=== PATIENT | female | born 1990 | race Caucasian/White ===

== ENCOUNTER → 2020-10-26 16:51 | Outpatient (BNVA) | payer OTHER, SELFPAY | PROVIDERS: Family Provider Obstetrics & Gynecology; Visit Provider Nurse Practitioner Family | DX: B96.89 Other specified bacterial agents as the cause of diseases classified elsewhere (principal); J03.80 Acute tonsillitis due to other specified organisms | CPT/HCPCS: 87071; 87880 ==

== ENCOUNTER → 2022-07-25 08:50 | Outpatient (BNVA) | payer OTHER, SELFPAY | PROVIDERS: Family Provider Obstetrics & Gynecology; Visit Provider Nurse Practitioner Women's Health | DX: Z34.90 Encounter for supervision of normal pregnancy, unspecified, unspecified trimester (principal) | CPT/HCPCS: 81000; 81025 ==

== ENCOUNTER 2022-08-15 19:03 | Emergency (ER) | payer OTHER, SELFPAY ==
[2022-08-15 19:06] VITALS: BP 137/89; PULSE 105; RESP 20; TEMP 37; O2SAT 100; BMI 23.6
--- NOTE | 2022-08-15 19:06 | USR_ITS ---
PROCEDURE INFORMATION: Exam: US First Trimester, Transabdominal and US , Transvaginal Exam date and time: 08/15/2022 7:51 PM Age: 31 years old Clinical indication: Lmp or gestational age (in weeks): 11w 4 d by u/s today. Antepartum complications; Bleeding; ; Patient HX: Spotting since office visit on 07/14/2022, now heavy vag bleed x 2 hours. ; Additional info: Threatened miscarriage LABS AND CLINICAL REPORTS: Serum Choriogonadotropin (HCG): 59162 mIU/mL Last menstrual period start date: 06/02/2022 Gestational age (Established): 10 w 4 d Estimated due date (Established): 03/09/2023 TECHNIQUE: Imaging protocol: Real-time transabdominal obstetrical ultrasound of the maternal pelvis and a first trimester , less than 14 weeks 0 days, with image documentation. Transvaginal imaging was used for better evaluation of the fetus, adnexa, and/or cervix. COMPARISON: US OB limited [id number] 06/04/2018 4:38 PM FINDINGS: Gestation: Intrauterine gestation is visualized. pole is visualized. No yolk sac is visualized. Embryonic/ heart rate: 164 bpm Extra-embryonic membranes/Placenta: Subchorionic hematoma measures 3.5 cm x 0.7 cm x 0.7 cm. Amniotic fluid: Amniotic fluid and extra-amniotic fluid is normal for gestational age. BIOMETRY: Gestational age (AUA): 11 w 4 d Estimated due date (AUA): 03/02/2023 Leming-Rump length (CRL): 49 mm. EGA (CRL) is 11 w 4 d MATERNAL: Uterus: Uterus measures 11.6 cm x 8 cm x 9.8 cm. Cervix: Unremarkable. Right ovary/adnexa: Right ovary measures 3.3 cm x 2.7 cm x 1.9 cm. Right ovarian volume is 8.8 mL. Left ovary/adnexa: Left ovary measures 3.8 cm x 2.3 cm x 3.5 cm. Left ovarian volume is 15.6 mL. Intraperitoneal space: No intraperitoneal free fluid. US/US OB <= 14 weeks fetus [id number] IMPRESSION: 1. Single live intrauterine gestation with estimated age of 11 weeks 4 days. 2. Small subchorionic hematoma.
[2022-08-15 19:42] LABS: Basophils % 0.5 %; Eosinophils # 0.2 10^3/uL (0.0-0.8); Eosinophils % 2.3 %; Hematocrit 37.7 % (37.0-47.0); Hemoglobin 12.7 g/dL (11.5-15.3); Lymphocytes % 37.8 %; Mean Corpuscular HGB Conc 33.7 g/dL (30.0-36.0); Mean Corpuscular Hemoglobin 30.2 pg (28.0-34.0); Mean Corpuscular Volume 89.8 fl (81-99); Mean Platelet Volume 9.2 fL (7.4-10.4); Monocytes # 0.4 10^3/uL (0.2-0.9); Monocytes % 4.9 %; Neutrophils # 4.26 10^3/uL (1.8-7.7); Neutrophils % 54.1 %; Nucleated Red Blood Cells % 0 %; Platelet Count 246 10^3/cmm (130-400); Red Cell Distribution Width 12.3 % (12.1-15.1); White Blood Count 7.9 10^3/uL (4.0-10.0)
--- NOTE | 2022-08-15 20:29 | W.ED.PREGNAN ---
HPI - General: Chief complaint: Vaginal Bleeding Stated complaint: 7 weeks preg. Bleeding Time Seen by Provider: 08/15/22 20:28 History of Present Illness: 31-year-old female comes in today with some bleeding and passing of clots during . Patient believes that she is approximately 7 weeks . Patient appears nontoxic. Patient appears in no acute distress. Date of Last Menstrual Period: 05/30/23 Associated symptoms: Reports nausea and vomiting Review of Systems Const: Denies: fever(s) Card: Denies: chest pain Resp: Denies: dyspnea GI: Reports: nausea and vomiting; Denies: diarrhea or constipation : Reports: vaginal bleeding; Denies: difficulty voiding Musc: Denies: back pain Skin/Breast: Denies: rash PFSH ED PFSH: Family History Denies family history of Colon cancer Ovarian cancer Diabetes Heart disease Breast cancer Family history of thyroid problem Hypertension Uterine cancer Stroke Hyperchloremia Female Reproductive History: Date of last menstrual period: 05/30/23 Physical Exam Const: COMMON NORMALS: alert HENMT: COMMON NORMALS: normocephalic HEAD & SCALP: normocephalic Neck/C-Spine: COMMON NORMALS: full ROM Resp: COMMON NORMALS: normal respiratory effort Cardio: COMMON NORMALS: regular rate RATE: regular rate GI: COMMON NORMALS: Soft to palpation PALPATION: Yes Soft to palpation Extremity: COMMON NORMALS: normal to inspection and no pedal edema Neuro: SENSORIUM/ORIENTATION: Yes alert Skin: COMMON NORMALS: no rashes or lesions noted GENERAL SKIN EXAM: no rashes or lesions noted Course ED course: 2045, discussed patient with Dr. Maldonado regarding the subchorionic bleed. Patient has good heart tones in the 160s, baby measures at [address] Maldonado recommended pelvic rest and no lifting with need to return for gross bleeding or fever. Patient is scheduled to follow-up with an appointment on Monday or of this week. Recommend contacting the office to ensure there is an appointment we will ask case management to assist. Reviewed this with patient who reported understanding and agreed to plan. Vital Signs: Vital signs: Vital Signs Temperature 98.6 F 08/15/22 19:06 Pulse Rate 105 H 08/15/22 19:06 Respiratory Rate 20 H 08/15/22 19:06 Blood Pressure 137/89 08/15/22 19:06 Pulse Oximetry 100 08/15/22 19:06 Oxygen Delivery Me thod 08/15/22 19:06 MDM - OB/Uterine Contractions Medical Decision Making 31-year-old female comes in today with some abnormal bleeding during the first trimester of . Patient did report 2 large clots. On exam abdomen soft nontender. Bowel sounds are present. Skin is warm and dry. Vital signs are normal. Differential diagnosis includes but not limited to miscarriage, subchorionic bleeding, ectopic . CBC noted a hemoglobin of 12.7. Serum quantitative result was 56,000. Patient is A positive blood typing. Ultrasound noted an 11-week gestation fetus with an active heart rate of 160s. Patient did have a subchorionic hemorrhage. Reviewed this with Dr. Maldonado who recommended follow-up in the office along with no lifting and pelvic rest. Case management was requested to make sure patient have an appointment for Monday or of this week. Patient reported understanding of care plan patient was put into no active working until follow-up appointment. Lab Data 08/15/22 19:30 Radiology Impressions Ultrasound 08/15/22 19:06 IMPRESSION: 1. Single live intrauterine gestation with estimated age of 11 weeks 4 days. 2. Small subchorionic hematoma. Laboratory Results WBC 7.9 10^3/uL (4.0-10.0) 08/15/22 19:30 RBC 4.20 10^6/uL (4.1-5.3) 08/15/22 19:30 Hgb 12.7 g/dL (11.5-15.3) 08/15/22 19:30 Hct 37.7 % (37.0-47.0) 08/15/22 19:30 MCV 89.8 fl (81-99) 08/15/22 19:30 MCH 30.2 pg (28.0-34.0) 08/15/22 19: MCHC 33.7 g/dL (30.0-36.0) 08/15/22 19:30 RDW 12.3 % (12.1-15.1) 08/15/22 19:30 Plt Count 246 10^3/cmm (130-400) 08/15/22 19:30 MPV 9.2 fL (7.4-10.4) 08/15/22 19:30 Neut % (Auto) 54.1 % 08/15/22 19:30 Lymph % (Auto) 37.8 % 08/15/22 19:30 [place] % (Auto) 4.9 % 08/15/22 19:30 Eos % (Auto) 2.3 % 08/15/22 19:30 Baso % (Auto) 0.5 % 08/15/22 19:30 Neut # (Auto) 4.26 10^3/uL (1.8-7.7) 08/15/22 19:30 Lymph # (Auto) 3.0 10^3/uL (0.8-4.8) 08/15/22 19:30 [place] # (Auto) 0.4 10^3/uL (0.2-0.9) 08/15/22 19:30 Eos # (Auto) 0.2 10^3/uL (0.0-0.8) 08/15/22 19:30 Baso # (Auto) 0.0 10^3/uL (0.0-0.1) 08/15/22 19:30 Nucleated RBC % (auto) 0 % 08/15/22 19: Nucleated RBCs # 0.0 /100WBC 08/15/22 19:30 Ser , Semi-Qnt 23499.00 mIU/mL 08/15/22 19:30 Discharge Plan Discharge Patient Disposition: Home Clinical Impression: Subchorionic bleed Qualifiers: Fetus number: single or unspecified fetus Trimester: first trimester Qualified Code(s): O41.8X10 - Other specified disorders of amniotic fluid and membranes, first trimester, not applicable or unspecified Condition: Stable Prescriptions: No Action No Known Home Medications Discharge Orders: Discharge ED (Routine); Ordered 08/15/22 Ordered By: Wood Potts Patient Instructions: Opioid Safety, Pain Management Activity Restrictions/Additional Instructions: Home and rest. Drink plenty of fluids. Minimal to light activity until bleeding stops. You should maintain pelvic rest and no lifting. Follow-up at scheduled appointment. Return to ER for worsening symptoms such as bleeding greater than 1 pad in 30 minutes, severe pain, or high fever greater than 100.4. regional e[facility] manager will contact you to assist with follow-up with Dr. Maldonado on Monday or . Stand Alone Forms: Work/School Release Coding Level of Care Code ED Inventory Control Clerk for Christelle Vasquez
[2022-08-15 21:02] VITALS: BP 131/75; PULSE 76; RESP 16; O2SAT 98
--- NOTE | 2022-08-16 10:45 | DCPLANNER ---
Addendum entered by Ani Lovell 09/13/22 08:00: Patient had a follow up appointment scheduled with [facility] - patient did attend appointment Addendum entered by Ani Lovell 08/17/22 12:44: Patient has a follow up appointment scheduled for , August 18, 2022 at 8:[address] Maldonado at [facility]. Clinic will call patient with appointment information. Original Note: spa manager had message to schedule a follow up appointment for patient with [facility]. spa manager sent patients information to the front office staff at [facility]. Patients information will be printed and reviewed. Clinic will call patient with appointment information.
== END 2022-08-15 21:02 | disposition home or self-care (01) ==
PROVIDERS: Emergency Medicine; Emergency Provider Nurse Practitioner Family
DX: O41.8X10 Other specified disorders of amniotic fluid and membranes, first trimester, not applicable or unspecified (principal); Z3A.01 Less than 8 weeks gestation of pregnancy
CPT/HCPCS: 36415; 76801; 84702; 85025; 86850; 86900; 99284

== ENCOUNTER → 2022-08-18 08:12 | Outpatient (BNVA) | payer OTHER, SELFPAY | PROVIDERS: Visit Provider Obstetrics & Gynecology | DX: Z34.90 Encounter for supervision of normal pregnancy, unspecified, unspecified trimester (principal) | CPT/HCPCS: 80307; 84315; 84443; 86592; 86762; 86803; 87086; 87340; 87806 ==

== ENCOUNTER → 2022-09-08 11:04 | Outpatient (BNVA) | payer OTHER, SELFPAY | PROVIDERS: Visit Provider Obstetrics & Gynecology | DX: O46.92 Antepartum hemorrhage, unspecified, second trimester (principal); Z3A.15 15 weeks gestation of pregnancy | CPT/HCPCS: 76815 ==

== ENCOUNTER 2022-09-14 23:13 | Emergency (ER) | payer OTHER, SELFPAY ==
[2022-09-14 23:30] VITALS: BP 145/92; PULSE 126; RESP 14; TEMP 36.9; O2SAT 99
--- NOTE | 2022-09-14 23:35 | W.ED.PREGNAN ---
HPI - General: Chief complaint: Vaginal Bleeding Stated complaint: 15 wks , vaginal discharge Time Seen by Provider: 09/14/22 23:18 Source: patient Mode of arrival: ambulatory Limitations: no limitations History of Present Illness: 31-year-old female who is currently 15 weeks states that tonight she had had some bloody discharge in her sheets she had noticed just prior to arrival states she has had bleeding throughout this she states she was seen earlier this week at [place] through the ER had an ultrasound that was normal along with palp exam that was normal she sees her OB on Monday she has had some slight abdominal cramping denies any severe pain denies any fever Associated symptoms: Deny abdominal pain, headache(s), nausea or vomiting Review of Systems Const: Denies: fever(s), chills, body aches or change in appetite Eyes: Denies: blurry vision or eye discomfort ENMT: Denies: throat pain or dental pain Card: Denies: chest pain Resp: Denies: dyspnea GI: Denies: abdominal pain, nausea, vomiting or diarrhea : Reports: vaginal bleeding Musc: Denies: neck pain or back pain Skin/Breast: Denies: rash Neuro: Denies: headache(s) Psych: Denies: depression Jack/Lymph: Denies: easy bruising All/Imm: Denies: urticaria PFSH ED PFSH: Medical History No pertinent past medical history Surgical History History of ankle surgery (~10/2008) sports injury Family History Denies family history of Colon cancer Ovarian cancer Diabetes Heart disease Breast cancer Family history of thyroid problem Hypertension Uterine cancer Stroke Hyperchloremia Physical Exam Const: COMMON NORMALS: no acute distress and patient oriented x3 HENMT: COMMON NORMALS: normocephalic and atraumatic HEAD & SCALP: normocephalic and atraumatic Eye: COMMON NORMALS: conjunctivae normal CONJUNCTIVA: Yes conjunctivae normal Neck/C-Spine: COMMON NORMALS: full ROM Chest: COMMONS NORMALS: normal inspection of the chest Resp: COMMON NORMALS: normal respiratory effort Cardio: COMMON NORMALS: regular rate RATE: regular rate GI: COMMON NORMALS: Normal to inspection, nondistended, normoactive bowel sounds present, Soft to palpation and non-tender PALPATION: Yes Soft to palpation Extremity: COMMON NORMALS: normal to inspection Neuro: COMMON NORMALS: patient oriented x3 Psych: COMMON NORMALS: mental status grossly normal Skin: COMMON NORMALS: no rashes or lesions noted GENERAL SKIN EXAM: no rashes or lesions noted Course Vital Signs: Vital signs: Vital Signs Temperature 98.5 F 09/14/22 23:30 Pulse Rate 126 H 09/14/22 23:30 Respiratory Rate 14 09/14/22 23:30 Blood Pressure 145/92 09/14/22 23:30 Pulse Oximetry 99 09/14/22 23:30 Oxygen Delivery Me thod 09/14/22 23:30 MDM - OB/Uterine Contractions Medical Decision Making Patient presents here with vaginal bleeding from home ultrasound showed IUP consistent with dates with heart rate of 152 she states she had a pelvic exam 2 days ago and refused a pelvic exam here she did not want any further testing she has an appoint with her OB on Monday she is to follow-up then she is return if worsening she understands agrees to plan. Discharge Plan Discharge Patient Disposition: Home Clinical Impression: Vaginal bleeding, Threatened miscarriage Condition: Stable Prescriptions: No Action No Known Home Medications Discharge Orders: Discharge ED (Routine); Ordered 09/14/22 Ordered By: Jean Pierre Kate Referrals: Jeanne Maldonado MD [Primary Care Provider] - 1-3 days Discharge Diet: Advance as tolerated Discharge Activity: Resume usual activity Patient Instructions: Threatened Miscarriage (ED) Coding Level of Care Code ED Relationship Advisor for Christelle Vasquez
[2022-09-15 00:12] VITALS: PULSE 99; RESP 16
== END 2022-09-14 23:55 | disposition home or self-care (01) ==
PROVIDERS: Emergency Provider Emergency Medicine; PCP Obstetrics & Gynecology
DX: O20.0 Threatened abortion (principal); Z3A.15 15 weeks gestation of pregnancy
CPT/HCPCS: 99282

== ENCOUNTER 2022-09-19 09:05 | Outpatient (CLI) | payer OTHER, SELFPAY ==
--- NOTE | 2022-09-19 09:30 | US_ITS ---
WS: [id number] OB ultrasound, 09/19/2022 Clinical Data: O20.9 - Hemorrhage in early , unspecified Comparison: OB ultrasound, 09/08/2022 Findings: The patient has had a spontaneous , miscarriage. There is no evidence of any material r emaining. The uterus is slightly enlarged. No abnormal adnexal masses are seen. US/US OB limited [id number] Impression: Miscarriage, no evidence of retention of material.
== END 2022-09-19 09:06 | disposition home or self-care (01) ==
LOC: RAD 09:09
PROVIDERS: Visit Provider Obstetrics & Gynecology
DX: O03.9 Complete or unspecified spontaneous abortion without complication (principal); Z3A.00 Weeks of gestation of pregnancy not specified
CPT/HCPCS: 76815; 81000

== ENCOUNTER 2022-09-20 14:58 | Day surgery (SDC) | payer OTHER, SELFPAY ==
[2022-09-20] VITALS (15 sets, daily range): BP systolic 102–142; BP diastolic 61–85; PULSE 84–122; RESP 14–22; TEMP 36.2–37.3; O2SAT 96–99
--- NOTE | 2022-09-20 16:22 | ANES.PREANE2 ---
Pre-Anesthetic Assessment Height/Weight: Height 1.7 m Weight 65.771 kg Temp Pulse Resp BP Pulse Ox O2 Del Method 99.2 F 88 18 142/84 98 09/20/22 16:21 09/20/22 16:21 09/20/22 16:21 09/20/22 16:21 09/20/22 16:21 09/20/22 16:21 Operation Date: 09/20/22 16:00 Proposed Procedures p Hysteroscopy w/ Myosure(Not Applicable) - Jeanne Maldonado MD s Dilation And Curettage (D&C)(Not Applicable) - Jeanne Maldonado MD Familial anesthetic complications: None Was Beta Raymond taken within 24 hours: N/A Was Clonidine taken within 24 hours: N/A Last intake: 13:00 Social No alcohol and No tobacco Exam alert, oriented x 3, clear to auscultation bilaterally and regular rate & rhythm Airway Mallampati: Class I Dentition: full Anesthetic Plan ASA status: 2 Anesthesia: General Risk of > 500 ml blood loss (7ml/kg in children): No Medications/Allergies Home Medications Medication Instructions Recorded Confirmed Last Taken Type ibuprofen 600 mg tablet 600 mg PO Q6H PRN pain #30 tabs 09/19/22 09/19/22 Unknown Rx misoprostol 200 mcg tablet 600 mcg PO Q6H #12 tabs 09/19/22 09/19/22 Unknown Rx (Cytotec) promethazine 25 mg tablet 25 mg PO Q6H PRN nausea and 09/19/22 09/19/22 Unknown Rx vomiting #30 tabs Allergies Allergy/AdvReac Type Severity Reaction Status Date / Time acetaminophen [From Tylenol] Allergy ALGY-Rash Verified 09/19/22 09:52 [facility] Anesthesia Medical History No pertinent past medical history Surgical History History of ankle surgery (~10/2008) sports injury Family History Denies family history of Colon cancer Ovarian cancer Diabetes Heart disease Breast cancer Family history of thyroid problem Hypertension Uterine cancer Stroke Hyperchloremia Data Anesthesia Cardiac Studies: No Data to Display
--- NOTE | 2022-09-20 16:29 | W.PM.OPSUD ---
Surgery/Procedure H&P Update DATE OF PROCEDURE: September 20, 2022 DATE H&P PERFORMED: 09/19/22 H&P UPDATE INFORMATION: I have reviewed H&P completed within last 30 days, I have examined patient prior to procedure and No changes to prior documentation CHANGES TO PREVIOUS DOCUMENTATION: The patient has suffered a miscarriage. She has retained placenta. She continues to bleed. PLANNED PROCEDURE: Operation Date: 09/20/22 16:00 Proposed Procedures p Hysteroscopy w/ Myosure(Not Applicable) - Jeanne Maldonado MD s Dilation And Curettage (D&C)(Not Applicable) - Jeanne Maldonado MD Related Problem List Diagnoses (1) Incomplete : (2) Endocervical polyp:
[2022-09-20] MEDS: sodium chloride 0.9% 1,000 ML 30 ML IV (16:50)
[2022-09-20] MEDS: scopolamine 1.5 Patch 1 PATCH TRANSDERMA (16:51)
[2022-09-20] MEDS: ceFAZolin 2,000 MG in sodium chloride 0.9% (plus) 50 ML 100 MG IV (21:02)
[2022-09-20] MEDS: miSOPROStol 200 mcg Tablet 800 MCG PR (21:52)
[2022-09-20] MEDS: tranexamic acid 1,000 mg/10mL SDV 1000 MG IV (21:52)
[2022-09-20] MEDS: oxytocin 10 unit/mL SDV 1 mL 20 UNIT IM (21:53)
[2022-09-20] MEDS: meperidine 50 mg/mL INJ 12.5 MG IVP (22:22)
--- NOTE | 2022-09-20 22:25 | P.OP_ITS ---
Operative Report Date of procedure: September 20, 2022 Pre-op diagnosis: Preop Diagnosis incomplete Post-op diagnosis: same Post-op findings: Retained placenta with a long endometrial polyp Procedure done: hysteroscopy, D&C and suction D&C. Specimens removed/disposition: products of conception. Endometrial polyp to pathology Surgeon: Jeanne Maldonado Anesthesia: General Estimated blood loss (mL): 200 IV fluids (mL): 1,100 Complications: none Findings: hysteroscopy deficit 520 ml Condition: stable Disposition: PACU Procedure: The patient was taken to the operating room where monitored anesthesia was administered and to be adequate. She was prepped and draped in the normal sterile fashion in the dorsal lithotomy position in [facility]. A weighted speculum was placed into the vagina and the anterior lip of the cervix grasped with a single-tooth tenaculum. The uterus was sounded to 14 cm. The cervix was already dilated and the hysteroscope was advanced into the endometrial cavity. There was a lot of blood visualized. The fluid was also escaping through the cervix so a second tenaculum was placed to attempt to slow the fluid release. I was able to see briefly. The MyoSure device was activated and some tissue was removed. The patient began bleeding at this point and I switched to suction D&C A 9 mm suction catheter was introduced into the uterine cavity. The suction was activated and products of conception were removed. I made several passes passes with the suction catheter. The patient continued to bleed. 800 of Cytotec was placed rectally. Pitocin was started IV. 1 g of TXA was given IV. There was also vigorous bimanual exam to clamp the uterus down. The bleeding slowed significantly. 1 pass with the sharp curette was performed and the texture was gritty. There was a scant amount of bleeding at this point. Attention was then turned back to the MyoSure. The myosure device was advanced into the endometrial cavity. Pictures were now able to be taken. There was a long polyp in the left tubal ostia region. Using the MyoSure device, I removed this polyp. All instruments were removed. Bleeding was scant. The patient tolerated the procedure well. Sponge lap and needle counts were correct x3. She was taken to the recovery room in stable condition.
--- NOTE | 2022-09-20 22:33 | PM.PACU ---
PACU note Exam: awake and vital signs stable Disposition: discharged
--- NOTE | 2022-09-20 22:39 | PM.DCS ---
Discharge Providers Date of Admission: 09/20/22 Date of Discharge: September 20, 2022 Attending Provider at Discharge: Jeanne Maldonado MD Diagnoses at Discharge Discharge Diagnosis (1) Incomplete : Status: Acute (2) Endocervical polyp: Status: Acute Reason for Visit Reason for Visit: miscarried yesterday/D&C Hospital Course Hospital Course The patient was admitted for surgery for incomplete . She did well postoperatively and was ready for discharge. Discharge Data Studies Completed and Pending Pending at discharge Category Date Time Status Pathology: Surgical [PTH] Routine Pth 09/20/22 21:43 Ordered Vitals Last Vital Signs Temp 97.2 F L 09/20/22 22:17 Pulse 105 H 09/20/22 22:30 Resp 20 H 09/20/22 22:30 BP 121/63 09/20/22 22:30 Pulse Ox 97 09/20/22 22:30 O2 Del Method 09/20/22 22:30 Discharge Plan Discharge Patient Disposition: Home Condition: Stable Prescriptions: Continued misoprostol [Cytotec] 200 mcg tablet 600 mcg PO Q6H Qty: 12 0RF ibuprofen 600 mg tablet 600 mg PO Q6H PRN (Reason: pain) Qty: 30 0RF promethazine 25 mg tablet 25 mg PO Q6H PRN (Reason: nausea and vomiting) Qty: 30 0RF Discharge Orders: Discharge Order (Routine); Ordered 09/20/22 Ordered By: Jeanne Maldonado Referrals: Jeanne Maldonado MD [Physician] - (Please call clinic tomorrow morning to schedule follow-up appointment. ) Patient Instructions: Dilatation and Curettage, Ibuprofen (By mouth) Discharge Attestations Time Spent in Discharge Care*: less than 30 min Quality Metrics Clinical Quality Measures [ No reported AMI, CVA or VTE this stay] Coding Level of Care Code Acute Code for Chg Fwd Diagnoses Incomplete O03.4 Endocervical polyp N84.1
--- NOTE | 2022-09-20 23:00 | ANE.PACU2 ---
Inpatient post-anesthesia follow up: Airway intact: Yes Vital signs: Temperature 98.7 F Pulse Rate 90 Respiratory Rate 14 Blood Pressure 126/75 Pulse Oximetry 97 Oxygen Delivery Me thod Room Air Oxygen Flow Rate Fraction of Inspir ed Oxygen Hydration adequate: Yes Nausea and vomiting: No Pain level: 1 Mental status: Baseline
== END 2022-09-20 23:45 | disposition home or self-care (01) ==
LOC: ER 15:09 → OBGYN 16:08 → ER 16:33 → OR 16:38 → ER 09-26 02:10 → OPS 09-26 02:11
PROVIDERS: Emergency Provider Obstetrics & Gynecology; Visit Provider Obstetrics & Gynecology
PROC: 0UDB8ZZ Extraction of Endometrium, Via Natural or Artificial Opening Endoscopic (ICD-10-PCS; CPT 58558; principal; 2022-09-20 16:00)
PROC: (CPT 58120; 2022-09-20 16:00)
DX: O03.4 Incomplete spontaneous abortion without complication (principal); N84.1 Polyp of cervix uteri
CPT/HCPCS: 58558; 88305; J0690; J1100; J1885; J2175; J2250; J2405; J2704; J2710; J3010; J3490; J7030

== ENCOUNTER 2022-09-25 22:27 | Observation (INO) | payer OTHER, SELFPAY ==
[2022-09-25 22:53] VITALS: BP 125/85; PULSE 138; RESP 18; TEMP 38.1; O2SAT 98
--- NOTE | 2022-09-25 23:30 | CTR_ITS ---
PROCEDURE INFORMATION: Exam: CT Abdomen And Pelvis With Contrast Exam date and time: 09/26/2022 12:16 AM Age: 31 years old Clinical indication: Fever; Abdominal pain; Localized; Lower; Prior surgery; Surgery date: Post-operative (0-2 days); Surgery type: D&c; Additional info: Fever back pain post d and c TECHNIQUE: Imaging protocol: Computed tomography of the abdomen and pelvis with contrast. Radiation optimization: All CT scans at this facility use at least one of these dose optimization techniques: automated exposure control; mA and/or kV adjustment per patient size (includes targeted exams where dose is matched to clinical indication); or iterative reconstruction. Contrast material: OMNI 350; Contrast volume: 100 ml; Contrast route: INTRAVENOUS (IV); REPORTING DATA: Count of CT and Cardiac NM exams in prior 12 months: This patient has received 0 known CTs and 0 known cardiac nuclear medicine studies in the 12 months prior to the current study. COMPARISON: US pelvic limited [id number] 09/25/2022 11:42 PM RADIATION DOSE METRICS: Total DLP (mGy-cm): 466.69 FINDINGS: Lungs: The visualized lung bases are clear. Liver: Unremarkable. No enhancing mass. Gallbladder and bile ducts: No calcified gallstones or biliary dilation identified. Pancreas: Unremarkable with no suspicious mass. No ductal dilation. Spleen: The spleen is not enlarged. No suspicious enhancing mass is noted. Adrenal glands: Normal. No mass. Kidneys and ureters: No solid renal mass or overt hydronephrosis. There is slight udtac-ingxpov-dkua-left pelvicaliectasis, which may be due to recent delivery. Stomach and bowel: Colon is quite fecal filled. Appendix: No evidence of appendicitis. Intraperitoneal space: Unremarkable. No free air. No suspicious fluid collection. Vasculature: Multiple pelvic phleboliths. No AAA. Lymph nodes: No enlarged lymph nodes. Urinary bladder: Unremarkable as visualized. Reproductive: The uterus is large and heterogenous. See the same-day ultrasound pelvis. Bones/joints: No acute fracture. Soft tissues: No acute or suspicious finding noted. CT/CT abdomen pelvis w con* [id number] IMPRESSION: 1. No small bowel obstruction, abscess or free air. 2. Large and heterogenous uterus, see the same-day ultrasound report for more details. 3. Fecal filled colon.
--- NOTE | 2022-09-25 23:30 | USR_ITS ---
PROCEDURE INFORMATION: Exam: US Pelvis Complete, Transabdominal and US Duplex Artery or Vein, Ovaries, Limited Exam date and time: 09/25/2022 11:42 PM Age: 31 years old Clinical indication: Other: Fever post dnc; Prior surgery; Surgery date: Post-operative (0-2 days); Additional info: Fever back pain post d and c TECHNIQUE: Imaging protocol: Real-time transabdominal pelvic ultrasound with image documentation. Real-time duplex ultrasound scan of the arterial or venous flow of the ovaries with B-mode, color Doppler flow and spectral waveform analysis. Complete Pelvis, Limited Duplex. Duplex exam was performed to evaluate for torsion and other vascular conditions. COMPARISON: US OB limited [id number] 09/19/2022 9:21 AM FINDINGS: Uterus: Uterus is 9 x 6 x 7 cm. There is mildly complex thickened endometrium to 1.2 cm. At the lower uterine segment, there is a small area of increased echogenicity measuring up to about 8 mm. It is not vascular, see series 1, image 14. No suspicious uterine myometrial mass. Right ovary/adnexa: Normal ovary. No mass. Normal arterial and venous flow on color and Duplex waveforms. Left ovary/adnexa: Normal ovary. No mass. Normal arterial and venous flow on color and Duplex waveforms. Intraperitoneal space: No free fluid. Urinary bladder: Normal. US/US pelvic complete* [id number] IMPRESSION: 1. Uterine endometrium mild thickening and heterogenous with a few internal echogenic areas that may be due to postop D&C changes such as blood products. Recommend 4-6 week follow-up. 2. No focal torsion or other acute finding. 3. CT pending.
--- NOTE | 2022-09-25 23:30 | XRR_ITS ---
PROCEDURE INFORMATION: Exam: XR Chest Exam date and time: 09/26/2022 12:12 AM Age: 31 years old Clinical indication: Fever; Additional info: Fever post op TECHNIQUE: Imaging protocol: Radiologic exam of the chest. Views: 1 view. COMPARISON: No relevant prior studies available. FINDINGS: Lungs: Unremarkable. No consolidation. Pleural spaces: Unremarkable. No pleural effusion. No pneumothorax. Heart/Mediastinum: Unremarkable. No cardiomegaly. Bones/joints: Unremarkable. XR/XR chest 1V portable [id number] IMPRESSION: No acute findings.
[2022-09-25 23:46] LABS: Basophils % 0.2 %; Eosinophils # 0.1 10^3/uL (0.0-0.8); Hematocrit 25.7 % (37.0-47.0); Hemoglobin 8.6 g/dL (11.5-15.3); Lymphocytes # 0.9 10^3/uL (0.8-4.8); Lymphocytes % 10.4 %; Mean Corpuscular HGB Conc 33.5 g/dL (30.0-36.0); Mean Corpuscular Hemoglobin 30.1 pg (28.0-34.0); Mean Corpuscular Volume 89.9 fl (81-99); Mean Platelet Volume 9.2 fL (7.4-10.4); Monocytes # 0.5 10^3/uL (0.2-0.9); Monocytes % 5.3 %; Neutrophils # 7.23 10^3/uL (1.8-7.7); Neutrophils % 81.1 %; Nucleated Red Blood Cells % 0.2 %; Platelet Count 308 10^3/cmm (130-400); Red Blood Count 2.86 10^6/uL (4.1-5.3); Red Cell Distribution Width 12.6 % (12.1-15.1); White Blood Count 8.9 10^3/uL (4.0-10.0)
[2022-09-26 00:06] LABS: Alanine Aminotransferase 37 U/L (0-33); Albumin Level 3.8 g/dL (3.5-5.2); Alkaline Phosphatase 75 U/L (35-105); Anion Gap 17.7 (5-19); Aspartate Amino Transferase 48 U/L (0-32); Blood Urea Nitrogen 9 mg/dL (6-20); C Reactive Protein 14.3 mg/L (0.0-4.9); Calcium 8.6 mg/dL (8.5-10.5); Carbon Dioxide 22 mmol/L (22-29); Chloride 100 mmol/L (98-107); Globulin 3.3 g/dL (1.3-4.6); Glomerular Filtration Rate 144.9 mL/min (90-130); Glucose 117 mg/dL (65-115); Lactate (Lactic Acid level) 1.2 mmol/L (0.5-2.2); Osmolality Calculated 282 mOsm/kg (285-295); Potassium 3.7 mmol/L (3.5-5.1); Sodium 136 mmol/L (136-145); Total Bilirubin 0.2 mg/dL (0.15-1.2); Total Protein 7.1 g/dL (6.6-8.7)
[2022-09-26] MEDS: iohexol 350 mg/mL 500 mL Btl (per mL) IV (00:07)
[2022-09-26 00:12] LABS: Procalcitonin 0.07 ng/mL (0-0.5)
[2022-09-26 00:16] LABS: Add Urine Microscopic? YES; Bilirubin Urine Neg (Negative); Blood Urine 2+ (Negative); Glucose Urine UA Norm (Normal); Ketones Urine Negative (Negative); Leukocyte Esterase Urine Trace (Negative); Nitrate Urine Negative (Negative); Protein Urine Neg (Negative); Specific Gravity, Urine 1.005 (1.005-1.030); Urine Appearance Clear (CLEAR); Urine Color Colorless (Yellow); Urobilinogen Urine Neg (Negative); pH Urine 7 (5-7)
[2022-09-26 00:17] LABS: Add Urine Culture? No; Bacteria Urine TRACE /hpf; Mucus Urine TRACE /hpf; RBC Urine 0-4 /hpf (0-2); Squamous Epithelial Cell Urine 0-4 /hpf (0-5); WBC Urine 0-4 /hpf (0-5)
[2022-09-26] MEDS: ibuprofen 200 mg Tablet 400 MG PO (00:31)
[2022-09-26] MEDS: ondansetron 2 mg/ML SDV 2 mL 4 MG IVP (00:33)
[2022-09-26] MEDS: sodium chloride 0.9% 1,000 ML 999 ML IV ×2 (00:33→01:18)
[2022-09-26] MEDS: piperacillin-tazobactam 4.5 GM in sodium chloride 0.9% (plus) 50 ML IV (00:36)
[2022-09-26] MEDS: vancomycin 1,000 MG in sodium chloride 0.9% 250 ML 250 MG IV (01:12)
[2022-09-26] MEDS: diphenhydrAMINE 50 mg/mL SDV 1mL 25 MG IVP (02:34)
--- NOTE | 2022-09-26 03:11 | ED_ITS ---
HPI - General Adult General: Chief complaint: General Medical Stated complaint: back pain, left cramping, fever/nausea post d&c Time Seen by Provider: 09/25/22 23:12 Source: patient and family History of Present Illness: This is a 31-year-old female postop from a D&C for 17-week miscarriage on 09/21. She presents with fever up to 101, back pain, pelvic pain, and continued vaginal bleeding. She also has a headache. She has not felt well for the last 24 hours or so. She has continued to have vaginal bleeding since her procedure, and was bleeding obviously prior to her procedure Onset (ago): hour(s) Location: back and pelvis Radiation: non-radiation Severity: moderate Quality: aching Associated symptoms: Reports fevers/chills and headache(s); Deny chest pain, confusion, cough, dyspnea, short of breath, syncope or vomiting Review of Systems Const: Reports: fever(s), chills and body aches ENMT: Denies: throat pain Card: Denies: chest pain or syncope Resp: Denies: dyspnea GI: Reports: GI cramping; Denies: vomiting : Reports: vaginal bleeding; Denies: flank pain or difficulty voiding Musc: Reports: back pain Neuro: Reports: headache(s); Denies: confusion PFSH ED PFSH: Medical History No pertinent past medical history Surgical History History of ankle surgery (~10/2008) sports injury Family History Denies family history of Colon cancer Ovarian cancer Diabetes Heart disease Breast cancer Family history of thyroid problem Hypertension Uterine cancer Stroke Hyperchloremia Physical Exam Const: GENERAL APPEARANCE: cooperative and ill appearing NUTRITIONAL APPEARANCE: thin HENMT: COMMON NORMALS: normocephalic, atraumatic and Normal external nose present HEAD & SCALP: normocephalic and atraumatic FACE & SINUS: normal facial exam and face symmetric NOSE: Normal external nose present Eye: COMMON NORMALS: Equal, round and reactive pupils present and EOMs intact bilaterally PUPIL: Yes Equal, round and reactive pupils present Neck/C-Spine: GENERAL: Yes trachea midline Chest: CHEST: Yes Symmetrical chest wall rise Resp: COMMON NORMALS: normal respiratory effort, No retractions, No use of accessory muscles and clear to auscultation bilaterally AUSCULTATION: clear t o auscultation bilaterally Cardio: COMMON NORMALS: regular rate and regular rhythm RATE: regular rate RHYTHM: regular rhythm GI: COMMON NORMALS: Normal to inspection, nondistended, normoactive bowel sounds present PALPATION: Yes Tenderness to palpation present (GI) : EXTERNAL FEMALE EXAM: Yes normal appearance of the urethra SPECULUM EXAM - CERVIX: Yes Cervical os open (slightly) and Yes Cervical bleeding (significant) OB/EXTERNAL & SPECULUM: Cervical os open (slightly) Extremity: COMMON NORMALS: no pedal edema Neuro: MALCOM COMA SCALE: document GCS findings [place] coma scale eye open ing: Spontaneous [place] coma scale verbal response: Orientated [place] coma scale motor response: Obey commands [place] coma scale total score: 15 SENSORY EXAM: Yes extremities (intact) Psych: COMMON NORMALS: speech normal SPEECH: Yes normal speech Skin: COMMON NORMALS: no rashes or lesions noted GENERAL SKIN EXAM: no rashes or lesions noted Course Consultations: Consultation #1: Angelo Vital Signs: Vital signs: Vital Signs Temperature 100.6 F H 09/25/22 22:53 Pulse Rate 138 H 09/25/22 22:53 Respiratory Rate 18 09/25/22 22:53 Blood Pressure 125/85 09/25/22 22:53 Pulse Oximetry 98 09/25/22 22:53 Oxygen Delivery Me thod 09/25/22 22:53 MDM - General Adult Medical Decision Making Patient is tachycardic, mildly hypotensive. Hemoglobin is 8.6. She continues to have significant vaginal bleeding that is somewhat brisk. She does have a fever. Chest x-ray is nonacute. CT shows a large and heterogenous uterus. Uterine endometrium on ultrasound shows mild thickening and heterogeneity. With the briskness of the bleeding, tachycardia, mild hypotension, and anemia, felt best to observe. She is covered with antibiotics in the ER. We will continue these. Repeat hemoglobins. Spoke with gynecology, they have accepted for observation. Lab Data 09/25/22 23:25 09/25/22 23:25 Radiology Impressions Abdomen/Pelvis CT 09/25/22 23:30 IMPRESSION: 1. No small bowel obstruction, abscess or free air. 2. Large and heterogenous uterus, see the same-day ultrasound report for more details. 3. Fecal filled colon. Chest X-Ray 09/25/22 23:30 IMPRESSION: No acute findings. Pelvis Ultrasound 09/25/22 23:30 IMPRESSION: 1. Uterine endometrium mild thickening and heterogenous with a few internal echogenic areas that may be due to postop D&C changes such as blood products. Recommend 4-6 week follow-up. 2. No focal torsion or other acute finding. 3. CT pending. Laboratory Results WBC 8.9 10^3/uL (4.0-10.0) 09/25/22 23: RBC 2.86 10^6/uL (4.1-5.3) L 09/25/22 23: Hgb 8.6 g/dL (11.5-15.3) L 09/25/22 23: Hct 25.7 % (37.0-47.0) L 09/25/22: MCV 89.9 fl (81-99) 09/25/22 23: MCH 30.1 pg (28.0-34.0) 09/25/22 23: MCHC 33.5 g/dL (30.0-36.0) 09/25/22 23: RDW 12.6 % (12.1-15.1) 09/25/22 23: Plt Count 308 10^3/cmm (130-400) 09/25/22 23:25 MPV 9.2 fL (7.4-10.4) 09/25/22 23: Neut % (Auto) 81.1 % 09/25/22 23: Lymph % (Auto) 10.4 % 09/25/22 23:25 Schley % (Auto) 5.3 % 09/25/22 23: Eos % (Auto) 1.0 % 09/25/22 23: Baso % (Auto) 0.2 % 09/25/22 23: Neut # (Auto) 7.23 10^3/uL (1.8-7.7) 09/25/22 23: Lymph # (Auto) 0.9 10^3/uL (0.8-4.8) 09/25/22 23: [place] # (Auto) 0.5 10^3/uL (0.2-0.9) 09/25/22 23:25 Eos # (Auto) 0.1 10^3/uL (0.0-0.8) 09/25/22 23:25 Baso # (Auto) 0.0 10^3/uL (0.0-0.1) 09/25/22 23:25 Nucleated RBC % (auto) 0.2 % 09/25/22 23:25 Nucleated RBCs # 0.0 /100WBC 09/25/22 23:25 Sodium 136 mmol/L (136-145) 09/25/22 23:25 Potassium 3.7 mmol/L (3.5-5.1) 09/25/22 23:25 Chloride 100 mmol/L (98-107) 09/25/22 23:25 Carbon Dioxide 22 mmol/L (22-29) 09/25/22 23:25 Anion Gap 17.7 (5-19) 09/25/22 23:25 BUN 9 mg/dL (6-20) 09/25/22 23:25 Creatinine 0.5 mg/dL (0.5-0.9) 09/25/22 23:25 GFR Calculation 144.9 mL/min (90-130) H 09/25/22 23:25 Glucose 117 mg/dL (65-115) H 09/25/22 23:25 Calculated Osmolality 282 mOsm/kg (285-295) L 09/25/22 23:25 Lactate 1.2 mmol/L (0.5-2.2) 09/25/22 23:25 Calcium 8.6 mg/dL (8.5-10.5) 09/25/22 23:25 Total Bilirubin 0.2 mg/dL (0.15-1.2) 09/25/22 23:25 AST 48 U/L (0-32) H 09/25/22 23:25 ALT 37 U/L (0-33) H 09/25/22 23:25 Alkaline Phosphatase 75 U/L (35-105) 09/25/22 23:25 C-Reactive Protein 14.3 mg/L (0.0-4.9) H 09/25/22 23:25 Total Protein 7.1 g/dL (6.6-8.7) 09/25/22 23:25 Albumin 3.8 g/dL (3.5-5.2) 09/25/22 23: Globulin 3.3 g/dL (1.3-4.6) 09/25/22 23: Procalcitonin 0.07 ng/mL (0-0.5) 09/25/22 23:25 Urine Color Colorless (Yellow) 09/25/22 23: Urine Appearance Clear (CLEAR) 09/25/22: Urine pH 7 (5-7) 09/25/22 23: Ur Specific [place] 1.005 (1.005-1.030) 09/25/22 23: Urine Protein Neg (Negative) 09/25/22 23: Urine Glucose (UA) Norm (Normal) 09/25/22: Urine Ketones Negative (Negative) 09/25/22 23: Urine Blood 2+ (Negative) H 09/25/22 23: Urine Nitrate Negative (Negative) 09/25/22: Urine Bilirubin Neg (Negative) 09/25/22 23: Urine Urobilinogen Neg mg/dL (Negative) 09/25/22 23:33 Ur Leukocyte Esterase Trace (Negative) H 09/25/22 23:33 Urine RBC 0-4 /hpf (0-2) H 09/25/22 23:33 Urine WBC 0-4 /hpf (0-5) H 09/25/22 23:33 Ur Squamous Epith Cells 0-4 /hpf (0-5) H 09/25/22 23: Amorphous Sediment Not Reportable 09/25/22 23: Urine Bacteria Trace /hpf (NONE) 09/25/22 23: Urine Mucus Trace /hpf 09/25/22 23:33 Blood Type A Positive 09/25/22 23:25 Rho(D) Type Positive 09/25/22 23:25 Antibody Screen Negative 09/25/22 23:25 Discharge Plan Discharge Patient Disposition: Placed in Observation Clinical Impression: Abnormal vaginal bleeding, Anemia due to acute blood loss, Fever postop Coding Level of Care Code ED Stem Roller for Christelle Vasquez
[2022-09-26 03:39] VITALS: BP 97/65; PULSE 76; RESP 18; O2SAT 96
[2022-09-26 04:00] VITALS: BP 105/65; PULSE 82; RESP 20; TEMP 36.7; O2SAT 97
[2022-09-26] MEDS: sodium chloride 0.9% 1,000 ML 125 ML IV (04:31)
[2022-09-26 04:56] LABS: Basophils % 0.2 %; Eosinophils # 0.1 10^3/uL (0.0-0.8); Eosinophils % 0.8 %; Hemoglobin 7.2 g/dL (11.5-15.3); Lymphocytes # 0.9 10^3/uL (0.8-4.8); Lymphocytes % 14.6 %; Mean Corpuscular HGB Conc 32.7 g/dL (30.0-36.0); Mean Corpuscular Hemoglobin 30.3 pg (28.0-34.0); Mean Corpuscular Volume 92.4 fl (81-99); Mean Platelet Volume 9.1 fL (7.4-10.4); Monocytes # 0.3 10^3/uL (0.2-0.9); Monocytes % 4.4 %; Neutrophils # 4.62 10^3/uL (1.8-7.7); Neutrophils % 78.1 %; Nucleated Red Blood Cells % 0 %; Platelet Count 248 10^3/cmm (130-400); Red Blood Count 2.38 10^6/uL (4.1-5.3); White Blood Count 5.9 10^3/uL (4.0-10.0)
[2022-09-26 05:37] LABS: Alanine Aminotransferase 32 U/L (0-33); Albumin Level 2.8 g/dL (3.5-5.2); Alkaline Phosphatase 71 U/L (35-105); Aspartate Amino Transferase 39 U/L (0-32); Blood Urea Nitrogen 7 mg/dL (6-20); Calcium 7.4 mg/dL (8.5-10.5); Carbon Dioxide 22 mmol/L (22-29); Chloride 111 mmol/L (98-107); Globulin 2.7 g/dL (1.3-4.6); Glomerular Filtration Rate 144.9 mL/min (90-130); Glucose 111 mg/dL (65-115); Osmolality Calculated 293 mOsm/kg (285-295); Sodium 142 mmol/L (136-145); Total Bilirubin 0.2 mg/dL (0.15-1.2); Total Protein 5.5 g/dL (6.6-8.7)
[2022-09-26 06:00] VITALS: PULSE 75
[2022-09-26 07:07] LABS: Hemoglobin 7.2 g/dL (11.5-15.3)
[2022-09-26 07:26] VITALS: BP 105/64; PULSE 78; RESP 16; TEMP 37.1; O2SAT 96
[2022-09-26] MEDS: piperacillin-tazobactam 3.375 GM in sodium chloride 0.9% (plus) 50 ML IV (07:36)
[2022-09-26] MEDS: ibuprofen 800 mg tablet PO (09:53)
--- NOTE | 2022-09-26 10:44 | PC.NURSE ---
Patient's hgb trended down to 7.2. Dr. Stephens ordered 2 units of PRBC, however, patient refused blood as she would rather receive it from family. Vaginal bleeding has decreased tremendously per patient. Dr. Koroma verbalized to place d/c orders in on patient and keep her f/u appt with Dr. Maldonado on 09/28/22. Patient verbalizes understanding and order from PRBC has been d/c.
--- NOTE | 2022-09-26 10:59 | P.CONIM_ITS ---
Providers/Reason for Consult Consulting Physican/Specialty*: Dr. Jesica Stephens Reason for Consult*: Vaginal bleeding Requesting Physcian: ER Attending Physician: Jesica Stephens DO Primary SWITCHBOARD WIRE WORKER HELPER: Dr. Maldonado SWITCHBOARD WIRE WORKER HELPER Consult HPI History of Present Illness Elizabeth Hsieh is a 31 year old female who presented to ER on 09/25/22 with c/ o Fever, chills, LARA, and pelvic cramping and low back pain. She c/o just not feeling well x 24 hours. Pt has hx of 16 wk IAB and had D&C with Endometrial Polypectomy 09/20/22 and has been bleeding since. Upon Presentation to the ER pt was having Tachycardia and was mildly hypotensive and the examining Physician was concerned and wanted to observe the pt overnight and tx with IV hydration and recheck her H/H . Pt this am c/o LARA, but denies dizziness, SOB, or CP. She feels some better. I reviewed her history of IAB with surgical history of the D&C and Polypectomy, and that light bleeding can be expected. We reviewed her Hgb of 8.6 which over night has decreased to 7.2 and with the LARA and tachycardia she may benefit from a Blood Transfusion of 2U to decrease and resolve her symptoms. Risk of transfusions reviewed, with good pt understnading. She expressed her bleeding today is barrel burner and improved from yesteday. I discussed her discharge expectations 2-3 hours after transfusion and rechecking of her H/H and encouraged her follow up with Dr. Maldonado on Monday as shceduled. Nursing staff called me shortly after my visit with Ms Hsieh and reported that pt was not comfortable receiving the transfusion from a Dr. that she didn't know and wanted to go home. Present Details Date of Last Menstrual Period: 05/28/22 Medications/Allergies Home Medications Medication Instructions Recorded Confirmed Last Taken Type ibuprofen 600 mg tablet 600 mg PO Q6H PRN pain #30 tabs 09/19/22 09/26/22 Unknown Rx Allergies Allergy/AdvReac Type Severity Reaction Status Date / Time acetaminophen [From Tylenol] Allergy ALGY-Rash Verified 09/26/22 08:15 Current Medications Generic Name Dose Route Start Last Admin Trade Name Freq PRN Reason Stop Dose Admin Sodium Chloride 1,000 mls @ 125 mls/hr 09/26/22 03:30 09/26/22 04:51 Sodium Chloride 0.9% IV 0 mls/hr .Q8H RELL Infusion Piperacillin Sod/Tazobactam 50 mls @ 12.5 mls/hr 09/26/22 08:00 09/26/22 07:36 Sod 3.375 gm/ Sodium Chloride IV 12.5 mls/hr Q8H RELL Administration Protocol Ibuprofen 800 mg 09/26/22 09:39 09/26/22 09:53 Ibuprofen 800 Mg Tablet PO 800 mg Q6H PRN Administration pain PFSH SWITCHBOARD WIRE WORKER HELPER PFSH: Medical History No pertinent past medical history Surgical History History of ankle surgery (~10/2008) sports injury Family History Denies family history of Colon cancer Ovarian cancer Diabetes Heart disease Breast cancer Family history of thyroid problem Hypertension Uterine cancer Stroke Hyperchloremia Vitals/I&O/Wt Last Vital Signs Temp 98.7 F 09/26/22 07:26 Pulse 78 09/26/22 07:26 Resp 16 09/26/22 07:26 BP 105/64 09/26/22 07:26 Pulse Ox 96 09/26/22 07:26 O2 Del Method 09/26/22 07:26 09/25/22 09/26/22 09/26/22 22:59 06:59 14:59 Intake Total 2090.917 / 2090.917 Balance 2090.917 / 2090.917 Weight last 48 hrs Weight 65.771 kg Data 09/26/22 06:51 09/26/22 04:36 Micro: Microbiology 09/26/22 01:57 Gram Stain - Final Cervix 09/25/22 23:47 Blood Culture - Preliminary Blood SPECIMEN COLLECTED 09/25/22 23:44 Blood Culture - Preliminary Blood SPECIMEN COLLECTED A&P Assessment and plan (1) Anemia due to acute blood loss: A. 1. S/P IAB with D&C and endometrial Polypectomy 2. Symptomatic Anemia 3. Pt declined Transfusion and requested discharge per Nursing staff. P. 1. Recommended PRBC transfusion x 2U. 2. Recheck H/H 2 hr after Transfusion of 2nd unit and Discharge to home. 3. Pt to follow up with Dr. Maldonado Monday as scheduled. Coding Level of Care Code Acute Code for Chg Fwd Diagnoses Anemia due to acute blood loss D62
[2022-09-26 11:29] VITALS: BP 106/65; PULSE 86; RESP 16; TEMP 36.5; O2SAT 98
== END 2022-09-26 12:20 | disposition home or self-care (01) ==
LOC: ER 09-26 03:18 → MEDSURG 09-26 03:41
PROVIDERS: Admitting Provider Obstetrics & Gynecology; Emergency Provider Emergency Medicine; Visit Provider Obstetrics & Gynecology
DX: D62 Acute posthemorrhagic anemia (principal); Z79.899 Other long term (current) drug therapy
CPT/HCPCS: 12345; 36415; 71045; 74177; 76856; 80053; 81001; 81003; 83605; 84145; 85018; 85025; 86140; 86850; 86900; 86920; 87040; 87070; 87077; 87186; 87205; 96365; 96366; 96367; 96375; 99285; G0378; J1200; J2405; J2543; J3370; J7030; J7050; Q9967

== ENCOUNTER → 2022-09-28 11:00 | Outpatient (BNVA) | payer OTHER, SELFPAY | PROVIDERS: Visit Provider Obstetrics & Gynecology | DX: R30.0 Dysuria (principal); Z34.90 Encounter for supervision of normal pregnancy, unspecified, unspecified trimester | CPT/HCPCS: 81000; 87086 ==

== ENCOUNTER 2023-09-18 00:39 | Inpatient (IN) | payer OTHER, SELFPAY ==
[2023-09-17] VITALS (14 sets, daily range): BP systolic 104–136; BP diastolic 60–82; PULSE 76–111; O2SAT 87–100; BMI 27.7
[2023-09-17] MEDS: lactated ringers 1,000 ML 999 ML IV (22:45)
[2023-09-17 22:59] LABS: Basophils % 0.2 %; Eosinophils # 0.1 10^3/uL (0.0-0.8); Hematocrit 34.4 % (36-47); Lymphocytes # 2.5 10^3/uL (0.8-4.8); Lymphocytes % 25.3 %; Mean Corpuscular HGB Conc 34.3 g/dL (30-55); Mean Corpuscular Hemoglobin 31.6 pg (27-33); Mean Corpuscular Volume 92.2 fl (85-98); Mean Platelet Volume 9.1 fL (7.4-10.4); Monocytes # 0.6 10^3/uL (0.2-0.9); Neutrophils # 6.68 10^3/uL (1.8-7.7); Neutrophils % 67.1 %; Nucleated Red Blood Cells % 0 %; Platelet Count 243 10^3/cmm (157-399); Red Blood Count 3.73 10^6/uL (3.85-5.65); Red Cell Distribution Width 13.7 % (12.1-15.1); White Blood Count 9.96 10^3/uL (3.29-11.43)
[2023-09-17] MEDS: ampicillin 2,000 MG in sodium chloride 0.9% (plus) 50 ML 100 MG IV (23:10)
[2023-09-17] MEDS: betamethasone susp 6 mg/mL 1 mL (per mL) 12 MG IM (23:17)
[2023-09-17] MEDS: lactated ringers 1,000 ML 125 ML IV (23:30)
[2023-09-17] MEDS: ROPivacaine syringe 100 MG/50 ML SYRINGE 10 MG EPIDURAL (23:42)
--- NOTE | 2023-09-17 23:54 | ANES.PREANE2 ---
Pre-Anesthetic Assessment Height/Weight: Height 1.7 m Pulse BP Pulse Ox 96 115/66 96 09/17/23 23:50 09/17/23 23:48 09/17/23 23:50 Preop Diagnosis: IUP Labor epidural Familial anesthetic complications: None Was Beta Raymond taken within 24 hours: N/A Was Clonidine taken within 24 hours: N/A Last intake: 1800 Social No alcohol and No tobacco Exam alert, oriented x 3, clear to auscultation bilaterally and regular rate & rhythm Airway Mallampati: Class II Dentition: full History/ROS No significant history except as noted Pulmonary None reported CV/HEM None reported None reported Hepatic None reported GI Gastroesophageal Reflux Disease Metabolic None reported Musc/skel None reported Neuropsych None reported Anesthetic Plan ASA status: 2 Anesthesia: Anesthesia Evaluation and Regional (specify below) (epidural) Risk of > 500 ml blood loss (7ml/kg in children): No Medications/Allergies Home Medications Medication Instructions Recorded Confirmed Last Taken Type ibuprofen 600 mg tablet 600 mg PO Q6H PRN pain #30 tabs 09/19/22 09/28/22 Unknown Rx cephalexin 500 mg capsule 500 mg PO Q8H #30 caps 09/28/22 09/28/22 Unknown Rx metronidazole 500 mg tablet 500 mg PO BID #20 tabs 09/28/22 09/28/22 Unknown Rx Allergies Allergy/AdvReac Type Severity Reaction Status Date / Time acetaminophen [From Tylenol] Allergy ALGY-Rash Verified 09/28/22 10:55 PFSH Anesthesia Medical History Bleeding in early Endocervical polyp History of labor Incomplete No pertinent past medical history Supervision of other high-risk Surgical History History of ankle surgery (~10/2008) sports injury Family History Denies family history of Colon cancer Ovarian cancer Diabetes Heart disease Breast cancer Family history of thyroid problem Hypertension Uterine cancer Stroke Hyperchloremia Data Anesthesia 09/17/23 22:50 Short CBC 09/17/23 Range/Units 22:50 WBC 9.96 (3.29-11.43) 10^3/uL Hgb 11.80 (11.27-16.99) g/dL Hct 34.4 L (36-47) % MCV 92.2 (85-98) fl Plt Count 243 (157-399) 10^3/cmm Neut % (Auto) 67.1 % Neut # (Auto) 6.68 (1.8-7.7) 10^3/uL Blood Bank 09/17/23 22:50 Blood Type A Positive Rho(D) Type Rh positive Antibody Screen Negative Cardiac Studies: No Data to Display Anesthesia Procedures Epidural Time Out Performed: Yes Consents Signed: Procedure Consent Consent: requested by attending/covering physician, from patient, risks and benefits reviewed and patient agrees to proceed Lumbar Level: L4-L5 Epidural position: sitting Epidural procedure: sterile prep of area, 1% lidocaine to numb the area, 18 g needle, negative for paresthesia passed, neg for paresthesia, test dose given, 1.5% xylocaine 1:200k epi, 0.2% Ropivacaine bolus ml (5), placed PCEA, no systemic response, sterile dressing applied, L.U.D. no apparent complications and 0.2% Ropiavacaine @ mls/hr (10) Additional Comments: GOPAL 6cm, catheter easily threaded to 5cm in the space. 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 Pt reports decreased pain with contractions but does report a hot spot on the right side- 100mcg Fentanyl and 3 ml 0.25% bupivacaine via epidural.
[2023-09-18] VITALS (49 sets, daily range): BP systolic 104–156; BP diastolic 56–97; PULSE 63–117; RESP 16–18; TEMP 36.4–36.8; O2SAT 96–99
[2023-09-18] MEDS: oxytocin 30 UNIT/500 ML BAG 600 UNIT IV (01:00)
[2023-09-18] MEDS: methylergonovine 0.2 mg/mL INJ 1 mL 0.200000000000000011 MG IM (01:05)
[2023-09-18] MEDS: lidocaine 2% INJ 20 mL INJECTION (01:05)
--- NOTE | 2023-09-18 01:25 | PM.OBGYHP ---
Providers/Chief Complaint Admitting Physician: Frantz Hernández MD Chief Complaint: Contractions, HPI ASSOCIATE PROFESSOR PHYSICIAN History of Present Illness Elizabeth Hsieh is a 32 year old female with an estimated gestational age at 34 weeks Present Details : 3 Para: 1 Review of Systems Narrative: movement: no Const: Denies: fever(s) or chills Card: Denies: chest pain, palpitations, irregular heart rhythm or syncope Resp: Denies: dyspnea GI: Denies: abdominal pain, nausea or vomiting : Denies: flank pain, dysuria, urinary frequency or urinary urgency Musc: Denies: back pain or extremity swelling Skin/Breast: Denies: rash, pruritus, breast pain, nipple discharge or breast mass Neuro: Denies: headache(s), difficulty walking, dizziness or restless legs Psych: Denies: anxiety, depression or mood swings Endo: Denies: polyuria, tired all the time, cold intolerance or heat intolerance Jack/Lymph: Denies: easy bruising, easy bleeding, petechiae or purpura All/Imm: Denies: urticaria Medications/Allergies Home Medications Medication Instructions Recorded Confirmed Last Taken Type ibuprofen 600 mg tablet 600 mg PO Q6H PRN pain #30 tabs 09/19/22 09/28/22 Unknown Rx cephalexin 500 mg capsule 500 mg PO Q8H #30 caps 09/28/22 09/28/22 Unknown Rx metronidazole 500 mg tablet 500 mg PO BID #20 tabs 09/28/22 09/28/22 Unknown Rx Allergies Allergy/AdvReac Type Severity Reaction Status Date / Time acetaminophen [From Tylenol] Allergy ALGY-Rash Verified 09/28/22 10:55 PFSH ASSOCIATE PROFESSOR PHYSICIAN PFSH: Medical History Bleeding in early Endocervical polyp History of labor Incomplete No pertinent past medical history Supervision of other high-risk Surgical History History of ankle surgery (~10/2008) sports injury Family History Denies family history of Colon cancer Ovarian cancer Diabetes Heart disease Breast cancer Family history of thyroid problem Hypertension Uterine cancer Stroke Hyperchloremia History History History 2 Term 0 1 Miscarriages/Ectopic 1 Living Children 1 Vitals/I&O/Wt Last Vital Signs Pulse 100 09/18/23 01:21 BP 106/71 09/18/23 01:21 Pulse Ox 99 09/18/23 00:40 09/17/23 09/17/23 09/18/23 14:59 22:59 06:59 Intake Total 1000 / 1000 Balance 1000 / 1000 Physical Exam Narrative: GA: Alert and oriented ?3. Lungs: Clear to auscultation bilaterally. Heart: Regular rhythm and rate. Abdomen: Gravid, full the height equals dates, nontender. MECHANICAL SERVICE SPECIALIST: SVE; dilation: 10 cm, effacement: 100%, station: 0, presentation: VX, membranes: IM. Extremities: no edema, no cyanosis, no calves pain. heart tracing: Basal rate: 140's bpm, Variability: moderate, Accelerations: present, Decelerations: absent, Contraction: q3min. Data 09/18/23 12:40 Results Labs OB ([facility]): Obstetrics US 09/19/22 Blood Type A Positive 09/17/23 Antibody Screen Negative 09/17/23 Hct 29.2 % (36-47) L 09/18/23 Hgb 10.00 g/dL (11.27-16.99) L 09/18/23 Rho(D) Type Rh positive 09/17/23 Plt Count 265 10^3/cmm (157-399) 09/18/23 Hep Bs Antigen Non-reactive (Nonreactive) 08/18/22 Hepatitis C Antibody Non-reactive (Nonreactive) 08/18/22 Rubella IgG Antibody 35.2 IU/mL (0.0-10.0) H 08/18/22 RPR Nonreactive (Nonreactive) 08/18/22 HIV 1&2 Ab & HIV 1 Ag Non-reactive (Non-Reactiv) 08/18/22 TSH 1.44 uIU/mL (0.27-4.20) 08/18/22 Ser , Semi-Qnt 79290.00 mIU/mL 08/15/22 HCG, Qual Positive (Negative) H 07/25/22 Urine Opiates Screen Negative ng/mL (Negative) 08/18/22 Ur Barbiturates Screen Negative ng/mL (Negative) 08/18/22 Ur Phencyclidine Scrn Negative ng/mL (Negative) 08/18/22 Ur Amphetamines Screen Negative ng/mL (Negative) 08/18/22 U Benzodiazepines Scrn Negative ng/mL (Negative) 08/18/22 Urine Cocaine Screen Negative ng/mL (Negative) 08/18/22 U Marijuana (THC) Screen Negative ng/mL (Negative) 08/18/22 Micro Urine Specimen 09/28/22 A&P Assessment and plan (1) labor in third trimester: Mrs. Basilio 32-year-old female with estimated gestational age at 34 weeks came into labor and delivery in active labor. Attestations Medical Necessity Statement*: In my professional opinion per admitting diagnosis Coding Level of Care Code Acute Code for Chg Fwd Diagnoses labor in third trimester O60.03
--- NOTE | 2023-09-18 01:27 | PM.DELIVERY ---
Delivery Note: Date of delivery: September 18, 2023 Pre-delivery diagnoses: labor Post-delivery diagnoses: delivered labor Procedure: Spontaneous vaginal delivery Delivering Physician: Frantz Hernández MD Estimated blood loss (mL): 500 Delivery: The patient was noted to be complete and pushing, so was placed in the dorsal lithotomy position, prepped and draped in the usual sterile fashion for a vaginal delivery. Pt. Noted to have epidural anesthesia. At 0056 the patient delivered a viable male infant weighing 2730 g with scores of 8 and 9 at one and five minutes, respectively. The vertex was delivered spontaneously over intact perineum. The patient was asked to push and the head delivered spontaneously in the ALISA position, over an intact perineum. A nuchal cord was checked and none noted. The anterior shoulder delivered easily and the posterior shoulder followed. The remainder of the infant was easily delivered and the oropharynx and nasopharynx was bulb suctioned. The was noted to have spontaneous cry and spontaneous movement of all four extremities. The cord was clamped x 2 and cut and noted to have 2 arteries and one vein. The infant was passed to the mother's abdomen where chiller technician and nursing personnel were in attendance. The placenta delivered intact spontaneously and the uterus was explored. 20 units of Pitocin was placed in the IV bag to firm the uterus. Examination of the cervix and vaginal vault did not reveal any lacerations. A vaginal pack was then placed. Examination of the perineum showed second-degree laceration. The laceration was repaired with 2-0 Vicryl in the normal fashion in a running non locking fashion to reapproximate the laceration in layers. The vaginal pack was then removed. The patient tolerated this procedure well, and recovered in L&D with her infant in their LDR room. All sponge and needle counts were correct. History History History 2 Term 0 1 Miscarriages/Ectopic 1 Living Children 1 Coding Level of Care Code Acute Code for Chg Fwd
[2023-09-18] MEDS: lanolin oint 7 gm 1 APPLIC TOPICAL (02:56)
[2023-09-18] MEDS: benzocaine-menthol 78 gm Canister 1 SPRAY TOPICAL (02:59)
--- NOTE | 2023-09-18 03:18 | PC.NURSE ---
pump off, nothing running in epidural
--- NOTE | 2023-09-18 03:18 | PC.NURSE ---
pump off, nohing running through tubing
[2023-09-18] MEDS: ibuprofen 800 mg tablet PO ×4 (04:03→21:44)
[2023-09-18] MEDS: docusate sodium 100 mg Capsule PO ×2 (09:10→19:38)
--- NOTE | 2023-09-18 09:48 | ANE.PACU2 ---
Inpatient post-anesthesia follow up: Airway intact: Yes Vital signs: Temperature 98.2 F Pulse Rate 74 Respiratory Rate 16 Blood Pressure 112/67 Pulse Oximetry 96 Oxygen Delivery Me thod Room Air Oxygen Flow Rate Fraction of Inspir ed Oxygen Hydration adequate: Yes Nausea and vomiting: No Pain level: 1 Mental status: Baseline Epidural Start/End: Epidural Start Date: 09/17/23 Epidural Start Time: 23:30 Epidural End Date: 09/18/23 Epidural End Time: 03:50
[2023-09-18 12:54] LABS: Hematocrit 29.2 % (36-47); Mean Corpuscular HGB Conc 34.2 g/dL (30-55); Mean Corpuscular Hemoglobin 31.6 pg (27-33); Mean Corpuscular Volume 92.4 fl (85-98); Mean Platelet Volume 9.3 fL (7.4-10.4); Platelet Count 265 10^3/cmm (157-399); Red Blood Count 3.16 10^6/uL (3.85-5.65); Red Cell Distribution Width 13.3 % (12.1-15.1); White Blood Count 14.96 10^3/uL (3.29-11.43)
[2023-09-19 04:00] VITALS: BP 105/65; PULSE 73; RESP 16; TEMP 36.5
[2023-09-19] MEDS: ibuprofen 800 mg tablet PO ×3 (08:52→20:06)
[2023-09-19] MEDS: docusate sodium 100 mg Capsule PO ×2 (08:52→20:06)
[2023-09-19 10:00] VITALS: BP 106/73; PULSE 82; TEMP 36.6
--- NOTE | 2023-09-19 13:13 | PM.PN ---
Vitals/I&O/Wt Last Vital Signs Temp 97.8 F 09/20/23 04:30 Pulse 82 09/20/23 04:30 Resp 16 09/20/23 04:30 BP 106/68 09/20/23 04:30 Pulse Ox 96 09/18/23 07:00 O2 Del Method Room Air 09/18/23 06:00 Physical Exam Narrative: GA; alert and oriented x 3 HEENT: normal Breasts: engorged Nipples - skin intact Lungs; clear to auscultation Heart: regular rhythm, no murmurs. Abd: Appropriately tender. BS+. Uterine fundus below umbilicus. No Fundal Tenderness. Perineum: normal lochia. Extremities: no edema, no cyanosis, no tenderness. Urinary Catheter Management: Donovan Latex: Cath Placed During This Visit: yes, but has since been removed by the nurse Reason for Continuing Indwelling Catheter: Decision to DC Catheter Urinary Catheter Date of Insertion: 09/18/23 Urinary Catheter Time of Insertion: 00:28 Date Urinary Catheter Removed: 09/18/23 Time Urinary Catheter Discontinued: 00:47 Data 09/18/23 12:40 A&P Assessment and plan (1) Status post vaginal delivery: Mrs. Mccarty is 32-year-old female is status post spontaneous vaginal delivery of infant. She is afebrile and hemodynamically stable day 1. Ambulating without difficulty. Tolerating diet well. (2) delivery, delivered: Attestations Medical Necessity Statement*: My professional opinion per admitting diagnosis Coding Level of Care Code Acute Code for Chg Fwd Diagnoses Status post vaginal delivery delivery, delivered O60.10X0
[2023-09-19 16:35] VITALS: BP 108/71; PULSE 79; TEMP 36.8
[2023-09-19 21:57] VITALS: BP 105/65; PULSE 70; RESP 16; TEMP 36.7
[2023-09-20 04:30] VITALS: BP 106/68; PULSE 82; RESP 16; TEMP 36.6
--- NOTE | 2023-09-20 08:18 | PM.OBGYDC ---
Discharge Providers PAPER INSPECTOR Date of Admission: 09/18/23 00:39 Date of Discharge: 09/20/23 Attending Provider at Admission: Frantz Hernández MD Attending Provider at Discharge: Frantz Hernández MD Primary PAPER INSPECTOR: Dr. Mendoza Diagnoses at Discharge Discharge Diagnosis (1) labor in third trimester: Status: Acute Reason for Visit Reason for Visit: Contractions, Hospital Course Hospital Course Mrs. Mhoinder Ahmadi 32-year-old female with an estimated gestational age at 34 weeks +5 days came to labor and delivery in active labor dilated to 8-9 cm. She progressed to have a spontaneous vaginal delivery without complications. observation uneventful. Tolerating diet well. Ambulating without difficulty. She was counseled regarding pelvic rest for 6 weeks (no sex, no tampons, no vaginal douches). Return to the emergency room if any fever, increased bleeding or pain. Information Peripartum Data: Delivery Method: Vaginal Physical Exam Narrative: GA; alert and oriented x 3 HEENT: normal Breasts: engorged Nipples - skin intact Lungs; clear to auscultation Heart: regular rhythm, no murmurs. Abd: Appropriately tender. BS+. Uterine fundus below umbilicus. No Fundal Tenderness. Perineum: normal lochia. Extremities: no edema, no cyanosis, no tenderness. Urinary Catheter Management: Donovan Latex: Cath Placed During This Visit: yes, but has since been removed by the nurse Reason for Continuing Indwelling Catheter: Decision to DC Catheter Urinary Catheter Date of Insertion: 09/18/23 Urinary Catheter Time of Insertion: 00:28 Date Urinary Catheter Removed: 09/18/23 Time Urinary Catheter Discontinued: 00:47 History History History 2 Term 0 1 Miscarriages/Ectopic 1 Living Children 1 Discharge Data Studies Completed and Pending Laboratory Results WBC 14.96 10^3/uL (3.29-11.43) H 09/18/23 12:40 RBC 3.16 10^6/uL (3.85-5.65) L 09/18/23 12:40 Hgb 10.00 g/dL (11.27-16.99) L 09/18/23 12:40 Hct 29.2 % (36-47) L 09/18/23 12:40 MCV 92.4 fl (85-98) 09/18/23 12:40 MCH 31.6 pg (27-33) 09/18/23 12:40 MCHC 34.2 g/dL (30-55) 09/18/23 12:40 RDW 13.3 % (12.1-15.1) 09/18/23 12:40 Plt Count 265 10^3/cmm (157-399) 09/18/23 12:40 MPV 9.3 fL (7.4-10.4) 09/18/23 12:40 Neut % (Auto) 67.1 % 09/17/23 22:50 Lymph % (Auto) 25.3 % 09/17/23 22:50 [place] % (Auto) 6.0 % 09/17/23 22:50 Eos % (Auto) 1.0 % 09/17/23 22:50 Baso % (Auto) 0.2 % 09/17/23 22:50 Neut # (Auto) 6.68 10^3/uL (1.8-7.7) 09/17/23 22:50 Lymph # (Auto) 2.5 10^3/uL (0.8-4.8) 09/17/23 22:50 [place] # (Auto) 0.6 10^3/uL (0.2-0.9) 09/17/23 22:50 Eos # (Auto) 0.1 10^3/uL (0.0-0.8) 09/17/23 22:50 Baso # (Auto) 0.0 10^3/uL (0.0-0.1) 09/17/23 22:50 Nucleated RBC % (auto) 0 % 09/17/23 22:50 Nucleated RBCs # 0.0 /100WBC 09/17/23 22:50 Blood Type A Positive 09/17/23 22:50 Rho(D) Type Rh positive 09/17/23 22:50 Antibody Screen Negative 09/17/23 22:50 Vitals Last Vital Signs Temp 97.8 F 09/20/23 04:30 Pulse 82 09/20/23 04:30 Resp 16 09/20/23 04:30 BP 106/68 09/20/23 04:30 Pulse Ox 96 09/18/23 07:00 O2 Del Method Room Air 09/18/23 06:00 Results Labs OB ([facility]): Obstetrics US 09/19/22 Blood Type A Positive 09/17/23 Antibody Screen Negative 09/17/23 Hct 29.2 % (36-47) L 09/18/23 Hgb 10.00 g/dL (11.27-16.99) L 09/18/23 Rho(D) Type Rh positive 09/17/23 Plt Count 265 10^3/cmm (157-399) 09/18/23 Hep Bs Antigen Non-reactive (Nonreactive) 08/18/22 Hepatitis C Antibody Non-reactive (Nonreactive) 08/18/22 Rubella IgG Antibody 35.2 IU/mL (0.0-10.0) H 08/18/22 RPR Nonreactive (Nonreactive) 08/18/22 HIV 1&2 Ab & HIV 1 Ag Non-reactive (Non-Reactiv) 08/18/22 TSH 1.44 uIU/mL (0.27-4.20) 08/18/22 Ser , Semi-Qnt 11224.00 mIU/mL 08/15/22 HCG, Qual Positive (Negative) H 07/25/22 Urine Opiates Screen Negative ng/mL (Negative) 08/18/22 Ur Barbiturates Screen Negative ng/mL (Negative) 08/18/22 Ur Phencyclidine Scrn Negative ng/mL (Negative) 08/18/22 Ur Amphetamines Screen Negative ng/mL (Negative) 08/18/22 U Benzodiazepines Scrn Negative ng/mL (Negative) 08/18/22 Urine Cocaine Screen Negative ng/mL (Negative) 08/18/22 U Marijuana (THC) Screen Negative ng/mL (Negative) 08/18/22 Micro Urine Specimen 09/28/22 Discharge Plan Discharge Patient Disposition: Home Condition: Stable Prescriptions: New acetaminophen 325 mg capsule 325 mg PO Q4H PRN (Reason: fever or pain) Qty: 60 0RF docusate sodium [Colace] 100 mg capsule 100 mg PO BID Qty: 60 0RF ferrous sulfate [Iron (ferrous sulfate)] 325 mg (65 mg iron) tablet 325 mg PO BID Qty: 60 0RF ibuprofen 800 mg tablet 800 mg PO TID PRN (Reason: pain) Qty: 60 0RF Continued ibuprofen 600 mg tablet 600 mg PO Q6H PRN (Reason: pain) Qty: 30 0RF metronidazole 500 mg tablet 500 mg PO BID Qty: 20 0RF cephalexin 500 mg capsule 500 mg PO Q8H Qty: 30 0RF Discharge Orders: Discharge Order (Routine); Ordered 09/20/23 Ordered By: Frantz Hernández Referrals: Frantz Hernández MD [Physician] - 6 Weeks Discharge Diet: Regular Discharge Activity: Limit activity as instructed Patient Instructions: Depression (DC), Bleeding (DC), Preeclampsia and Eclampsia After Delivery (GEN), Hemorrhage (DC), OB Discharge Report, OB Food/Drug Interaction Guide, Opioid Safety, OB Home Care, OB Vaginal Deliveries - [facility] Activity Restrictions/Additional Instructions: 1. Please call [facility] clinic on next working day to make your appointment in 6 weeks. 2. Please stay home until you come back to the clinic on first post-hospatilization check up. 3. Please follow instructions on your medications CAREFULLY. 4. If you have abdominal incision, do not cover it unless dressing is necessary because of drainage. OK to shower, but avoid bath. Leave steri-strips until they fall off. If they are still on one week after surgery, you may remove them. 5. If you had vaginal surgery or vaginal repair, Dr. Hernández may instruct you to take SITZ bath. 6. Yellow, blood tinged odorous vaginal discharge is usually normal after hysterectomy or vaginal surgeries. 7. No SEXUAL INTERCOURSE, tampons, or douches until you are completely released from the post-operative care. 8. Avoid constipation by eating right and maybe using some Metamucil or Milk of Magnesia. 9. All prescription refills are given during the working hours. Please do no wait till it runs out. Call the clinic at [phone] before your medication runs out. The clinic will get in touch with your doctor to prescribe medications if necessary. 10. Please remain within 40 mile radius from our hospital because emergencies do happen now and then during the post-operative period. 11. If you have stairs at home, take one step at a time slowly and minimize the number of trips. It helps to stay in one floor for the next few days. No lifting except what you can lift by one hand until you are released from the post-operative care. 12. Driving is discouraged until you are well healed. It may be 3-4 weeks before you feel strong enough to drive. You should be able to turn and look through the rear window without pain and you should be able to push the brake pedal very hard without pain before you drive. No fast rules, but SAFETY should be your primary concern. DO NOT drive if you are on sedating medications such as narcotics. 13. Call the clinic (during working hours) to make urgent appointment or go to the Emergency room, if any of the following occurs: i. Vaginal bleeding becomes heavy, more than a period. ii. Incision becomes red and sore, or drains pus. iii. Your TEMPERATURE is over 100.4F or you have chill. iv. IV site becomes red and swollen (a little ``knot?? is usually OK) v. Persistent nausea and vomiting vi. Persistent constipation or diarrhea vii. Rash or allergic reaction to medications. Discharge Attestations PAPER INSPECTOR Time Spent in Discharge Care*: greater than 30 min Coding Level of Care Code Acute Code for Chg Fwd Diagnoses labor in third trimester O60.03
--- NOTE | 2023-09-20 08:43 | P.DS_ITS ---
Discharge Providers OPHTHALMOLOGIST RETINA SPECIALIST Date of Admission: 09/18/23 00:39 Date of Discharge: 09/20/23 Attending Provider at Admission: Frantz Hernández MD Attending Provider at Discharge: Frantz Hernández MD Diagnoses at Discharge Discharge Diagnosis (1) labor in third trimester: Status: Acute Reason for Visit Reason for Visit: Contractions, Hospital Course Hospital Course Mrs. Mohinder Ahmadi 32-year-old female with an estimated gestational age at 34 weeks +5 days came to labor and delivery in active labor dilated to 8-9 cm. She progressed to have a spontaneous vaginal delivery without complications. observation uneventful. Tolerating diet well. Ambulating without difficulty. She was counseled regarding pelvic rest for 6 weeks (no sex, no tampons, no vaginal douches). Return to the emergency room if any fever, increased bleeding or pain. Information Peripartum Data: Delivery Method: Vaginal Physical Exam Narrative: GA; alert and oriented x 3 HEENT: normal Breasts: engorged Nipples - skin intact Lungs; clear to auscultation Heart: regular rhythm, no murmurs. Abd: Appropriately tender. BS+. Uterine fundus below umbilicus. No Fundal Tenderness. Perineum: normal lochia. Extremities: no edema, no cyanosis, no tenderness. Urinary Catheter Management: Donovan Latex: Cath Placed During This Visit: yes, but has since been removed by the nurse Reason for Continuing Indwelling Catheter: Decision to DC Catheter Urinary Catheter Date of Insertion: 09/18/23 Urinary Catheter Time of Insertion: 00:28 Date Urinary Catheter Removed: 09/18/23 Time Urinary Catheter Discontinued: 00:47 History History History 2 Term 0 1 Miscarriages/Ectopic 1 Living Children 1 Discharge Data Studies Completed and Pending Laboratory Results WBC 14.96 10^3/uL (3.29-11.43) H 09/18/23 12:40 RBC 3.16 10^6/uL (3.85-5.65) L 09/18/23 12:40 Hgb 10.00 g/dL (11.27-16.99) L 09/18/23 12:40 Hct 29.2 % (36-47) L 09/18/23 12:40 MCV 92.4 fl (85-98) 09/18/23 12:40 MCH 31.6 pg (27-33) 09/18/23 12:40 MCHC 34.2 g/dL (30-55) 09/18/23 12:40 RDW 13.3 % (12.1-15.1) 09/18/23 12:40 Plt Count 265 10^3/cmm (157-399) 09/18/23 12:40 MPV 9.3 fL (7.4-10.4) 09/18/23 12:40 Neut % (Auto) 67.1 % 09/17/23 22:50 Lymph % (Auto) 25.3 % 09/17/23 22:50 [place] % (Auto) 6.0 % 09/17/23 22:50 Eos % (Auto) 1.0 % 09/17/23 22:50 Baso % (Auto) 0.2 % 09/17/23 22:50 Neut # (Auto) 6.68 10^3/uL (1.8-7.7) 09/17/23 22:50 Lymph # (Auto) 2.5 10^3/uL (0.8-4.8) 09/17/23 22:50 [place] # (Auto) 0.6 10^3/uL (0.2-0.9) 09/17/23 22:50 Eos # (Auto) 0.1 10^3/uL (0.0-0.8) 09/17/23 22:50 Baso # (Auto) 0.0 10^3/uL (0.0-0.1) 09/17/23 22:50 Nucleated RBC % (auto) 0 % 09/17/23 22:50 Nucleated RBCs # 0.0 /100WBC 09/17/23 22:50 Blood Type A Positive 09/17/23 22:50 Rho(D) Type Rh positive 09/17/23 22:50 Antibody Screen Negative 09/17/23 22:50 Vitals Last Vital Signs Temp 97.8 F 09/20/23 04:30 Pulse 82 09/20/23 04:30 Resp 16 09/20/23 04:30 BP 106/68 09/20/23 04:30 Pulse Ox 96 09/18/23 07:00 O2 Del Method Room Air 09/18/23 06:00 Results Labs OB ([facility]): Obstetrics US 09/19/22 Blood Type A Positive 09/17/23 Antibody Screen Negative 09/17/23 Hct 29.2 % (36-47) L 09/18/23 Hgb 10.00 g/dL (11.27-16.99) L 09/18/23 Rho(D) Type Rh positive 09/17/23 Plt Count 265 10^3/cmm (157-399) 09/18/23 Hep Bs Antigen Non-reactive (Nonreactive) 08/18/22 Hepatitis C Antibody Non-reactive (Nonreactive) 08/18/22 Rubella IgG Antibody 35.2 IU/mL (0.0-10.0) H 08/18/22 RPR Nonreactive (Nonreactive) 08/18/22 HIV 1&2 Ab & HIV 1 Ag Non-reactive (Non-Reactiv) 08/18/22 TSH 1.44 uIU/mL (0.27-4.20) 08/18/22 Ser , Semi-Qnt 08110.00 mIU/mL 08/15/22 HCG, Qual Positive (Negative) H 07/25/22 Urine Opiates Screen Negative ng/mL (Negative) 08/18/22 Ur Barbiturates Screen Negative ng/mL (Negative) 08/18/22 Ur Phencyclidine Scrn Negative ng/mL (Negative) 08/18/22 Ur Amphetamines Screen Negative ng/mL (Negative) 08/18/22 U Benzodiazepines Scrn Negative ng/mL (Negative) 08/18/22 Urine Cocaine Screen Negative ng/mL (Negative) 08/18/22 U Marijuana (THC) Screen Negative ng/mL (Negative) 08/18/22 Micro Urine Specimen 09/28/22 Discharge Plan Discharge Patient Disposition: Home Condition: Stable Prescriptions: New acetaminophen 325 mg capsule 325 mg PO Q4H PRN (Reason: fever or pain) Qty: 60 0RF docusate sodium [Colace] 100 mg capsule 100 mg PO BID Qty: 60 0RF ferrous sulfate [Iron (ferrous sulfate)] 325 mg (65 mg iron) tablet 325 mg PO BID Qty: 60 0RF ibuprofen 800 mg tablet 800 mg PO TID PRN (Reason: pain) Qty: 60 0RF Continued ibuprofen 600 mg tablet 600 mg PO Q6H PRN (Reason: pain) Qty: 30 0RF metronidazole 500 mg tablet 500 mg PO BID Qty: 20 0RF cephalexin 500 mg capsule 500 mg PO Q8H Qty: 30 0RF Discharge Orders: Discharge Order (Routine); Ordered 09/20/23 Ordered By: Frantz Hernández Referrals: Frantz Hernández MD [Physician] - 6 Weeks Discharge Diet: Regular Discharge Activity: Limit activity as instructed Patient Instructions: Depression (DC), Bleeding (DC), P reeclampsia and Eclampsia After Delivery (GEN), Hemorrhage (DC), OB Discharge Report, OB Food/Drug Interaction Guide, Opioid Safety, OB Home Care, OB Vaginal Deliveries - [facility] Activity Restrictions/Additional Instructions: 1. Please call [facility] Women [facility] HealthCare clinic on next working day to make your appointment in 6 weeks. 2. Please stay home until you come back to the clinic on first post- hospatilization check up. 3. Please follow instructions on your medications CAREFULLY. 4. If you have abdominal incision, do not cover it unless dressing is necessary because of drainage. OK to shower, but avoid bath. Leave steri-strips until they fall off. If they are still on one week after surgery, you may remove them. 5. If you had vaginal surgery or vaginal repair, Dr. Hernández may instruct you to take SITZ bath. 6. Yellow, blood tinged odorous vaginal discharge is usually normal after hysterectomy or vaginal surgeries. 7. No SEXUAL INTERCOURSE, tampons, or douches until you are completely released from the post-operative care. 8. Avoid constipation by eating right and maybe using some Metamucil or Milk of Magnesia. 9. All prescription refills are given during the working hours. Please do no wait till it runs out. Call the clinic at [phone] before your medication runs out. The clinic will get in touch with your doctor to prescribe medications if necessary. 10. Please remain within 40 mile radius from our hospital because emergencies do happen now and then during the post-operative period. 11. If you have stairs at home, take one step at a time slowly and minimize the number of trips. It helps to stay in one floor for the next few days. No lifting except what you can lift by one hand until you are released from the post-operative care. 12. Driving is discouraged until you are well healed. It may be 3-4 weeks before you feel strong enough to drive. You should be able to turn and look through the rear window without pain and you should be able to push the brake pedal very hard without pain before you drive. No fast rules, but SAFETY should be your primary concern. DO NOT drive if you are on sedating medications such as narcotics. 13. Call the clinic (during working hours) to make urgent appointment or go to the Emergency room, if any of the following occurs: i. Vaginal bleeding becomes heavy, more than a period. ii. Incision becomes red and sore, or drains pus. iii. Your TEMPERATURE is over 100.4F or you have chill. iv. IV site becomes red and swollen (a little ``knot?? is usually OK) v. Persistent nausea and vomiting vi. Persistent constipation or diarrhea vii. Rash or allergic reaction to medications. Discharge Attestations OPHTHALMOLOGIST RETINA SPECIALIST Time Spent in Discharge Care*: greater than 30 min Coding Level of Care Code Acute Code for Chg Fwd Diagnoses labor in third trimester O60.03
[2023-09-20] MEDS: ibuprofen 800 mg tablet PO (09:50)
[2023-09-20] MEDS: docusate sodium 100 mg Capsule PO (09:50)
[2023-09-20 11:31] VITALS: BP 98/65; PULSE 80; RESP 17; TEMP 36.6; O2SAT 98
[2023-09-20 12:00] VITALS: BP 98/65; PULSE 80; RESP 17; TEMP 36.6; O2SAT 98
== END 2023-09-20 12:00 | disposition home or self-care (01) | DRG 807 ==
LOC: OPOB 00:39 → OBGYN 00:39
PROVIDERS: Admitting Provider Obstetrics & Gynecology; Visit Provider Obstetrics & Gynecology
DX: O60.14X0 Preterm labor third trimester with preterm delivery third trimester, not applicable or unspecified (principal); Z37.0 Single live birth; O70.1 Second degree perineal laceration during delivery; Z3A.34 34 weeks gestation of pregnancy
CPT/HCPCS: 36415; 51702; 59025; 59409; 85025; 85027; 86850; 86900; 96372; 96374; 99211; J0290; J0702; J2210; J2590; J2795; J3010; J3490; J7120

== ENCOUNTER 2023-09-26 21:03 | Emergency (ER) | payer OTHER, SELFPAY ==
[2023-09-26 21:06] VITALS: BP 121/85; PULSE 70; RESP 17; TEMP 36.3; O2SAT 99
--- NOTE | 2023-09-26 21:34 | USR_ITS ---
PROCEDURE INFORMATION: Exam: US Duplex Right Lower Extremity Veins, Limited Exam date and time: 09/26/2023 9:52 PM Age: 32 years old Clinical indication: Leg, lower; Patient HX: Patient is one week status post- with two distinct sites of pain in the medial right knee area and the medial right proximal calf area. Patient has a history of varicosities S/P stripping 2020. ; Additional info: Leg swelling, please US the soft tissue swelling to the posteromedial knee TECHNIQUE: Imaging protocol: Real-time duplex ultrasound of the right extremity with 2-D rosenbaum scale, color Doppler flow and spectral waveform analysis including responses to compression and other maneuvers (when performed) with image documentation. Limited exam was focused on the right lower extremity veins. COMPARISON: US pelvic complete* [id number] 09/25/2022 11:42 PM FINDINGS: Right deep veins: The common femoral, femoral, proximal profunda femoral and popliteal veins are patent without evidence of thrombus and demonstrate normal waveforms. Superficial veins: Saphenofemoral junction is patent without thrombus. In the medial aspect of the right knee and proximal right calf there are thrombosed venous varicosities compatible with thrombophlebitis. Soft tissues: No gross sonographic abnormality. US/[place] [id number] IMPRESSION: 1. No sonographic evidence of deep venous thrombosis in the right lower extremity. 2. Thrombophlebitis involving superficial venous varicosities in the medial aspect of the right knee and proximal calf.
--- NOTE | 2023-09-26 21:37 | W.ED.EXTPRO ---
Documented by User: PETEY Martinez 09/26/23 23:07 HPI - Extremity Problem General: Chief complaint: Extremity Problem,Nontraumatic Stated complaint: right leg, hot redness lump 7 day post delivery Time Seen by Provider: 09/26/23 21:18 Source: patient Mode of arrival: ambulatory Limitations: no limitations History of Present Illness: Patient is a 32-year-old female who is 1 week who presents to the emergency department complaining of right leg pain and swelling. Patient notes that the symptoms popped up soon after giving delivery 1 week ago, as she states there were no complications with this. She notes a history of vein stripping procedure as well as multiple varicosities, but denies history of DVT. She notes that the pain and swelling has been accompanied by spreading redness, primarily to the back of the knee. She denies any fever, breathing difficulties, palpitations, chest pains, or any other symptoms at this time. MD Complaint: extremity pain and extremity swelling Onset (ago): week(s) (1) Pain Consistency: constant Location: right Associated symptoms: Deny chest pain, fever(s) or rash Context: other (Recent delivery) Review of Systems General: Reports: 10 or more systems reviewed and unremarkable except in HPI and below Const: Denies: fever(s), chills or fatigue Eyes: Denies: change in vision ENMT: Denies: throat pain, ear or mastoid pain or nasal discharge Card: Denies: chest pain, palpitations, swelling of feet/ankles or lightheadedness Resp: Denies: dyspnea, productive cough or wheezing GI: Denies: abdominal pain, nausea, vomiting, diarrhea or constipation : Denies: flank pain, difficulty voiding, dysuria or urinary frequency Musc: Reports: extremity pain and extremity swelling; Denies: neck pain, back pain or joint pain Skin/Breast: Reports: erythema; Denies: rash Neuro: Denies: headache(s), numbness in extremities or weakness in extremities PFSH ED PFSH: Medical History Incomplete Bleeding in early Endocervical polyp Supervision of other high-risk No pertinent past medical history History of labor Surgical History History of ankle surgery (~10/2008) sports injury Family History Denies family history of Colon cancer Ovarian cancer Diabetes Heart disease Breast cancer Family history of thyroid problem Hypertension Uterine cancer Stroke Hyperchloremia Physical Exam Const: COMMON NORMALS: no acute distress, patient oriented x3 and no limitations GENERAL APPEARANCE: cooperative, comfortable and well developed ORIENTATION/CONSCIOUSNESS: Yes awake, Yes oriented to person, Yes oriented to place and Yes oriented to time HENMT: COMMON NORMALS: normocephalic, atraumatic and hearing grossly normal bilaterally HEAD & SCALP: normocephalic and atraumatic Eye: COMMON NORMALS: Equal, round and reactive pupils present, EOMs intact bilaterally and conjunctivae normal CONJUNCTIVA: Yes conjunctivae normal PUPIL: Yes Equal, round and reactive pupils present Neck/C-Spine: COMMON NORMALS: full ROM, supple and no JVD Resp: COMMON NORMALS: normal respiratory effort, No retractions, No use of accessory muscles and clear to auscultation bilaterally AUSCULTATION: clear to auscultation bilaterally Cardio: COMMON NORMALS: no JVD, regular rate, regular rhythm, No clicks present (Cardio), No murmurs present (Cardio) and No rub (Cardio) RATE: regular rate RHYTHM: regular rhythm Extremity: COMMON NORMALS: full ROM and capillary refill normal NARRATIVE EXTREMITY EXAM: Area of erythema noted to the posteromedial right knee. There are 2 separate areas of induration noted, which are tender to the touch. Varicosities noted bilateral lower extremities. DP/PT pulses are 2+ bilaterally. No calf tenderness. Negative Homans' sign. Neuro: COMMON NORMALS: patient oriented x3, moves all extremities, no focal motor deficits and no sensory deficits noted SENSORIUM/ORIENTATION: Yes oriented to person, Yes oriented to place and Yes oriented to time Psych: COMMON NORMALS: mental status grossly normal and Normal thought process present THOUGHT PROCESS: Normal thought process present Skin: COMMON NORMALS: no rashes or lesions noted GENERAL SKIN EXAM: no rashes or lesions noted Course Vital Signs: Vital signs: Vital Signs Temperature 97.4 F L 09/26/23 21:06 Pulse Rate 70 09/26/23 21:06 Respiratory Rate 17 09/26/23 21:06 Blood Pressure 121/85 09/26/23 21:06 Pulse Oximetry 99 09/26/23 21:06 Oxygen Delivery Me thod Room Air 09/26/23 21:06 MDM - Extremity (Nontraumatic) Medical Decision Making Patient seen and evaluated in the emergency department today due to 1 week of right leg swelling and redness. Patient's vitals normal on arrival. She is 1 week . Examination revealed area of redness and multiple spots of induration to the medial and posterior knee. She was tender to palpation at these areas. She has history of varicosities. Duplex ultrasound of the right lower extremity did not demonstrate any signs of DVT or soft tissue abscess formation. It did however demonstrate that the areas of her pain and swelling were superficial thrombus formations. I instructed her that this is conservative therapy with compression stockings, ice, and ibuprofen for pain. She agrees with this plan and return precautions are given. Lab Data Radiology Impressions Venous Duplex 09/26/23 21:34 IMPRESSION: 1. No sonographic evidence of deep venous thrombosis in the right lower extremity. 2. Thrombophlebitis involving superficial venous varicosities in the medial aspect of the right knee and proximal calf. All radiology interpretation(s) finalized by discharge Discharge Plan Discharge Patient Disposition: Home Clinical Impression: Superficial thrombophlebitis Qualifiers: Superficial thrombophlebitis-Involved body area: lower extremity Laterality: right Qualified Code(s): I80.01 - Phlebitis and thrombophlebitis of superficial vessels of right lower extremity Condition: Stable Prescriptions: No Action ibuprofen 600 mg tablet 600 mg PO Q6H PRN (Reason: pain) Qty: 30 0RF metronidazole 500 mg tablet 500 mg PO BID Qty: 20 0RF cephalexin 500 mg capsule 500 mg PO Q8H Qty: 30 0RF ibuprofen 800 mg tablet 800 mg PO TID PRN (Reason: pain) Qty: 60 0RF Iron (ferrous sulfate) 325 mg (65 mg iron) tablet 325 mg PO BID Qty: 60 0RF Colace 100 mg capsule 100 mg PO BID Qty: 60 0RF acetaminophen 325 mg capsule 325 mg PO Q4H PRN (Reason: fever or pain) Qty: 60 0RF Discharge Orders: Discharge ED (Routine); Ordered 09/26/23 Ordered By: Darryl Velasquez Discharge Diet: Usual diet Discharge Activity: Increase activity as tolerated Patient Instructions: Superficial Thrombophlebitis (ED) Activity Restrictions/Additional Instructions: Compression stockings. Ice for added relief. Ibuprofen. Follow-up with your primary care provider. Return with any new or concerning symptoms you may have. Coding Level of Care Code ED [employer] Documented by User: Hans Bhakta DO 09/27/23 06:24 HPI - Extremity Problem General: Chief complaint: Extremity Problem,Nontraumatic Stated complaint: right leg, hot redness lump 7 day post delivery Time Seen by Provider: 09/26/23 21:18 PFSH ED PFSH: Medical History Incomplete Bleeding in early Endocervical polyp Supervision of other high-risk No pertinent past medical history History of labor Surgical History History of ankle surgery (~10/2008) sports injury Family History Denies family history of Colon cancer Ovarian cancer Diabetes Heart disease Breast cancer Family history of thyroid problem Hypertension Uterine cancer Stroke Hyperchloremia Course Vital Signs: Vital signs: Vital Signs Temperature 97.4 F L 09/26/23 21:06 Pulse Rate 70 09/26/23 21:06 Respiratory Rate 17 09/26/23 21:06 Blood Pressure 121/85 09/26/23 21:06 Pulse Oximetry 99 09/26/23 21:06 Oxygen Delivery Me thod Room Air 09/26/23 21:06 MDM - Extremity (Nontraumatic) Medical Decision Making Patient seen and evaluated in the emergency department today due to 1 week of right leg swelling and redness. Patient's vitals normal on arrival. She is 1 week . Examination revealed area of redness and multiple spots of induration to the medial and posterior knee. She was tender to palpation at these areas. She has history of varicosities. Duplex ultrasound of the right lower extremity did not demonstrate any signs of DVT or soft tissue abscess formation. It did however demonstrate that the areas of her pain and swelling were superficial thrombus formations. I instructed her that this is conservative therapy with compression stockings, ice, and ibuprofen for pain. She agrees with this plan and return precautions are given. Chart reviewed Lab Data Radiology Impressions Venous Duplex 09/26/23 21:34 IMPRESSION: 1. No sonographic evidence of deep venous thrombosis in the right lower extremity. 2. Thrombophlebitis involving superficial venous varicosities in the medial aspect of the right knee and proximal calf. Discharge Plan Discharge Patient Disposition: Home Clinical Impression: Superficial thrombophlebitis Qualifiers: Superficial thrombophlebitis-Involved body area: lower extremity Laterality: right Qualified Code(s): I80.01 - Phlebitis and thrombophlebitis of superficial vessels of right lower extremity Condition: Stable Prescriptions: No Action ibuprofen 600 mg tablet 600 mg PO Q6H PRN (Reason: pain) Qty: 30 0RF metronidazole 500 mg tablet 500 mg PO BID Qty: 20 0RF cephalexin 500 mg capsule 500 mg PO Q8H Qty: 30 0RF ibuprofen 800 mg tablet 800 mg PO TID PRN (Reason: pain) Qty: 60 0RF Iron (ferrous sulfate) 325 mg (65 mg iron) tablet 325 mg PO BID Qty: 60 0RF Colace 100 mg capsule 100 mg PO BID Qty: 60 0RF acetaminophen 325 mg capsule 325 mg PO Q4H PRN (Reason: fever or pain) Qty: 60 0RF Discharge Orders: Discharge ED (Routine); Ordered 09/26/23 Ordered By: Darryl Velasquez Discharge Diet: Usual diet Discharge Activity: Increase activity as tolerated Patient Instructions: Superficial Thrombophlebitis (ED) Activity Restrictions/Additional Instructions: Compression stockings. Ice for added relief. Ibuprofen. Follow-up with your primary care provider. Return with any new or concerning symptoms you may have. Coding Level of Care Code ED [employer] for Christelle Vasquez
== END 2023-09-26 23:10 | disposition home or self-care (01) ==
PROVIDERS: Emergency Provider Physician Assistant
DX: I80.01 Phlebitis and thrombophlebitis of superficial vessels of right lower extremity (principal)
CPT/HCPCS: 93971; 99284